=== PATIENT | male | born 1970 | race Caucasian/White ===

== ENCOUNTER 2018-11-15 13:15 | Emergency (ER) | payer MEDICAID ==
[2018-11-15] MEDS ORDERED: RINGERS SOLUTION,LACTATED 1,000 ML IV ONE ×2 (13:46→14:26)
[2018-11-15] MEDS ORDERED: DIPH/PERTUSS(ACELL)/TETANUS VAC/PF 0.5 ML SYR (>=10YO) IM ONE (13:46)
[2018-11-15 13:51] VITALS: BP 121/70
[2018-11-15 14:04] LABS: ABSOLUTE EOSINOPHILS # (AUTO) 0.1 10^3/uL (0.0-0.6); ABSOLUTE LYMPHOCYTES (AUTO) 1.4 10^3/uL (0.5-4.7); ABSOLUTE NEUT (AUTO) 6.1 10^3/uL (1.7-8.2); BASOPHILS % (AUTO) 0.3 % (0-2); EOSINOPHILS % (AUTO) 1.1 % (0-6); HEMATOCRIT 42.4 % (37.9-51.0); HEMOGLOBIN 14.3 g/dL (13.5-17.0); LYMPHOCYTES % (AUTO) 16.5 % (13-45); MEAN CORPUSCULAR HEMOGLOBIN 33.4 pg (27.0-33.4); MEAN CORPUSCULAR HGB CONC 33.6 g/dL (32.0-36.0); MEAN CORPUSCULAR VOLUME 99 fl (80-97); MONOCYTES % (AUTO) 11.2 % (3-13); PLATELET COUNT 232 10^3/uL (150-450); RED BLOOD COUNT 4.27 10^6/uL (4.35-5.55); RED CELL DISTRIBUTION WIDTH 14.3 % (11.5-14.0); SEGMENTED NEUTROPHILS % (AUTO) 70.9 % (42-78); TOTAL CELLS COUNTED % (AUTO) 100 %; WHITE BLOOD COUNT 8.6 10^3/uL (4.0-10.5)
[2018-11-15 14:09] LABS: ALANINE AMINOTRANSFERASE 63 U/L (21-72); ALKALINE PHOSPHATASE 68 U/L (38-126); ASPARTATE AMINO TRANSFERASE 81 U/L (17-59); BILIRUBIN,DIRECT 0.3 mg/dL (0.0-0.4); BILIRUBIN,TOTAL 0.6 mg/dL (0.2-1.3); BLOOD UREA NITROGEN 6 mg/dL (7-20); CALCIUM 8.9 mg/dL (8.4-10.2); CREATINE KINASE 1455 U/L (55-170); GLUCOSE 90 mg/dL (75-110); POTASSIUM 4.3 mmol/L (3.6-5.0); TOTAL PROTEIN 7.6 g/dL (6.3-8.2)
[2018-11-15 14:14] LABS: ANION GAP 19 (5-19); CARBON DIOXIDE 20 mmol/L (22-30); CHLORIDE 104 mmol/L (98-107); SODIUM 142.6 mmol/L (137-145)
--- NOTE | 2018-11-15 14:51 | RADIOLOGY REPORT (SQ) ---
EXAM DESCRIPTION: CT HEAD WITHOUT COMPLETED DATE/TIME: 11/15/2018 2:40 pm REASON FOR STUDY: etoh, ? trauma COMPARISON: None. TECHNIQUE: Axial images acquired through the brain without intravenous contrast. Images reviewed wi th bone, brain and subdural windows. Additional sagittal and coronal reconstructions were generated. Images stored on PACS. All CT scanners at this facility use dose modulation, iterative reconstruction, and/or weight based d osing when appropriate to reduce radiation dose to as low as reasonably achievable (ALARA). [facility]: Dose Right [facility]: CareDose [facility]: Dose Right [facility]: Teradose 4D [facility]: Smart [employer] RADIATION DOSE: CT Rad equipment meets quality standard of care and radiation dose reduction techniq ues were employed. CTDIvol: 53.2 mGy. DLP: 1124 mGy-cm. mGy. LIMITATIONS: Motion artifact. FINDINGS: VENTRICLES: Normal size and contour. CEREBRUM: No masses. No hemorrhage. No midline shift. No evidence for acute infarction. Normal gra y/white matter differentiation. No areas of low density in the white matter. CEREBELLUM: No masses. No hemorrhage. No alteration of density. No evidence for acute infarction. EXTRAAXIAL SPACES: No fluid collections. No masses. ORBITS AND GLOBE: No intra- or extraconal masses. Normal contour of globe without masses. CALVARIUM: No fracture. PARANASAL SINUSES: No fluid or mucosal thickening. SOFT TISSUES: No mass or hematoma. OTHER: No other significant finding. IMPRESSION: Examination is slightly limited by motion artifact. Within this limitation, no acute in tracranial pathology. EVIDENCE OF ACUTE STROKE: NO. COMMENT: Quality ID # [id number]: Final reports with documentation of one or more dose reduction techniques (e.g., Automated exposure control, adjustment of the mA and/or kV according to patient size, use of iterative reconstruction technique) TECHNICAL DOCUMENTATION: JOB ID: [id number] [employer]- All Rights Reserved Reading location - IP/workstation name: [email or web address]
--- NOTE | 2018-11-15 14:52 | RADIOLOGY REPORT (SQ) ---
EXAM DESCRIPTION: CT CERVICAL SPINE WITHOUT COMPLETED DATE/TIME: 11/15/2018 2:40 pm REASON FOR STUDY: etoh, ? trauma COMPARISON: None. TECHNIQUE: Axial images acquired through the cervical spine without intravenous contrast. Images re viewed with lung, soft tissue and bone windows. Reconstructed coronal and sagittal MPR images review ed. Images stored on PACS. All CT scanners at this facility use dose modulation, iterative reconstruction, and/or weight based d osing when appropriate to reduce radiation dose to as low as reasonably achievable (ALARA). [facility]: Dose Right [facility]: CareDose [facility]: Dose Right [facility]: Teradose 4D [facility]: [employer] RADIATION DOSE: CT Rad equipment meets quality standard of care and radiation dose reduction techniq ues were employed. CTDIvol: 22.3 mGy. DLP: 905 mGy-cm. mGy. LIMITATIONS: None. FINDINGS: ALIGNMENT: Anatomic. MINERALIZATION: Normal. VERTEBRAL BODIES: No fractures or dislocation. DISCS: Moderate multilevel disc degenerative disease. FACETS, LATERAL MASSES, POSTERIOR ELEMENTS: No fractures. No dislocation. No acute findings. HARDWARE: None in the spine. VISUALIZED RIBS: No fractures. LUNG APICES AND SOFT TISSUES: No significant or acute findings. OTHER: No other significant finding. IMPRESSION: No fracture or static subluxation of the cervical spine. TECHNICAL DOCUMENTATION: JOB ID: [id number] Quality ID # [id number]: Final reports with documentation of one or more dose reduction techniques (e.g., Au tomated exposure control, adjustment of the mA and/or kV according to patient size, use of iterative reconstruction technique) 2010 [employer]- All Rights Reserved Reading location - IP/workstation name: [email or web address]
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
== END 2018-11-15 16:08 | disposition left against medical advice (07) ==
LOC: ER 13:15
DX: T79.6XXA Traumatic ischemia of muscle, initial encounter (principal); S81.012A Laceration without foreign body, left knee, initial encounter; W11.XXXA Fall on and from ladder, initial encounter; Y93.H9 Activity, other involving exterior property and land maintenance, building and construction; M21.371 Foot drop, right foot; S20.212A Contusion of left front wall of thorax, initial encounter; S40.021A Contusion of right upper arm, initial encounter; S50.02XA Contusion of left elbow, initial encounter; S50.01XA Contusion of right elbow, initial encounter; S80.01XA Contusion of right knee, initial encounter; X58.XXXA Exposure to other specified factors, initial encounter; Z53.29 Procedure and treatment not carried out because of patient's decision for other reasons
CPT/HCPCS: 99284; 96360; 96361; 90471; 36415; 82553; 82550; 85025; 80053; 70450; 72125; 90715; J7120

== ENCOUNTER 2019-12-27 06:12 | Inpatient (IN) | payer MEDICAID ==
--- NOTE | 2019-12-27 07:16 | EKG REPORT ---
SEVERITY:- ABNORMAL ECG - SINUS RHYTHM DIFFUSE NONSSPECIFIC ST CHANGES : Confirmed by: Adrian Hoang MD 27-Dec-2019 07:16:17
[2019-12-27] MEDS ORDERED: ONDANSETRON HCL INJ/PF 4 MG/2 ML SDV IV ONE (07:56)
[2019-12-27] MEDS ORDERED: MORPHINE SULFATE 10 MG/ML INJ IV ONE ×2 (07:56→10:06)
[2019-12-27] MEDS ORDERED: NORMAL SALINE 1000 ML 1,000 ML IV ONE ×2 (07:56→12:05)
--- NOTE | 2019-12-27 08:37 | RADIOLOGY REPORT (SQ) ---
EXAM DESCRIPTION: CHEST SINGLE VIEW IMAGES COMPLETED DATE/TIME: 12/27/2019 8:23 am REASON FOR STUDY: epigastric pain COMPARISON: None. EXAM PARAMETERS: NUMBER OF VIEWS: One view. TECHNIQUE: Single frontal radiographic view of the chest acquired. RADIATION DOSE: NA LIMITATIONS: None. FINDINGS: LUNGS AND PLEURA: No opacities, masses or pneumothorax. No pleural effusion. MEDIASTINUM AND HILAR STRUCTURES: No masses. Contour normal. HEART AND VASCULAR STRUCTURES: Heart normal in size. Normal vasculature. BONES: No acute findings. HARDWARE: None in the chest. OTHER: No other significant finding. IMPRESSION: NO ACUTE RADIOGRAPHIC FINDING IN THE CHEST. TECHNICAL DOCUMENTATION: JOB ID: [id number] 2010 [employer]- All Rights Reserved Reading location - IP/workstation name: [email or web address]
[2019-12-27 09:24] LABS: ABSOLUTE EOSINOPHILS # (AUTO) 0.3 10^3/uL (0.0-0.6); ABSOLUTE LYMPHOCYTES (AUTO) 1.8 10^3/uL (0.5-4.7); ABSOLUTE MONOCYTES (AUTO) 0.7 10^3/uL (0.1-1.4); BASOPHILS % (AUTO) 0.4 % (0-2); EOSINOPHILS % (AUTO) 3.2 % (0-6); HEMOGLOBIN 17.4 g/dL (13.5-17.0); LYMPHOCYTES % (AUTO) 16.3 % (13-45); MEAN CORPUSCULAR HEMOGLOBIN 35.4 pg (27.0-33.4); MEAN CORPUSCULAR HGB CONC 34.1 g/dL (32.0-36.0); MEAN CORPUSCULAR VOLUME 104 fl (80-97); MONOCYTES % (AUTO) 6.1 % (3-13); PLATELET COUNT 338 10^3/uL (150-450); RED BLOOD COUNT 4.91 10^6/uL (4.35-5.55); RED CELL DISTRIBUTION WIDTH 13.5 % (11.5-14.0); TOTAL CELLS COUNTED % (AUTO) 100 %; WHITE BLOOD COUNT 10.8 10^3/uL (4.0-10.5)
[2019-12-27 09:41] LABS: ALBUMIN 4.9 g/dL (3.5-5.0); ALKALINE PHOSPHATASE 94 U/L (38-126); ANION GAP 12 (5-19); ASPARTATE AMINO TRANSFERASE 96 U/L (17-59); BILIRUBIN,DIRECT 0.2 mg/dL (0.0-0.4); BLOOD UREA NITROGEN 12 mg/dL (7-20); CALCIUM 10.4 mg/dL (8.4-10.2); CARBON DIOXIDE 30 mmol/L (22-30); CHLORIDE 94 mmol/L (98-107); GLUCOSE 145 mg/dL (75-110); POTASSIUM 4.8 mmol/L (3.6-5.0)
[2019-12-27] MEDS ORDERED: LORAZEPAM INJ 2 MG/1 ML VIAL IV ONE (10:06)
[2019-12-27] MEDS ORDERED: PIPERACILLIN/TAZOBACTAM 3.375 GM VIAL IV ONE (12:12)
--- NOTE | 2019-12-27 12:12 | RADIOLOGY REPORT (SQ) ---
EXAM DESCRIPTION: CT ABD/PELVIS WITH IV ONLY IMAGES COMPLETED DATE/TIME: 12/27/2019 11:45 am REASON FOR STUDY: epigastric pain COMPARISON: None. TECHNIQUE: CT scan of the abdomen and pelvis performed using helical scanning technique with dynamic intravenous contrast injection. No oral contrast. Images reviewed with lung, soft tissue, and bone windows. Reconstructed coronal and sagittal MPR images reviewed. Delayed images for evaluation of the urinary system also acquired. All images stored on PACS. All CT scanners at this facility use dose modulation, iterative reconstruction, and/or weight based d osing when appropriate to reduce radiation dose to as low as reasonably achievable (ALARA). [facility]: Dose Right [facility]: CareDose [facility]: Dose Right [facility]: Teradose 4D [facility]: [employer] CONTRAST TYPE AND DOSE: contrast/concentration: Isovue 350.00 mmol/ml; Total Contrast Delivered: 86. 0 ml; Total Saline Delivered: 69.0 ml RENAL FUNCTION: Creatinine 0.9 RADIATION DOSE: CT Rad equipment meets quality standard of care and radiation dose reduction techniq ues were employed. CTDIvol: 9.5 - 13.4 mGy. DLP: 1289 mGy-cm.. LIMITATIONS: None. FINDINGS: There is free intraperitoneal air under the right hemidiaphragm and in the epigastrium and normal in the maria de jesus hepatis. There is right and left subphrenic free fluid, trace right pericolic gutter free fluid, moderate free pelvic fluid. Fluid extends into a patent right inguinal canal/right inguinal hernia. Findings are worrisome for perforated viscus, gastric antrum is thick walled, perforated ulcer may be present. Findings discussed with Dr. Banuelos in the emergency room, 12 noon 12/27/2019. LOWER CHEST: No significant findings. No nodules or infiltrates. LIVER: Normal size. No masses. No dilated ducts. SPLEEN: Normal size. No focal lesions. PANCREAS: No masses. No significant calcifications. No adjacent inflammation or peripancreatic fluid collections. Pancreatic duct not dilated. GALLBLADDER: No identified stones by CT criteria. No inflammatory changes to suggest cholecystitis. ADRENAL GLANDS: No significant masses or asymmetry. RIGHT KIDNEY AND URETER: No solid masses. No significant calcifications. No hydronephrosis or hyd roureter. LEFT KIDNEY AND URETER: No solid masses. No significant calcifications. No hydronephrosis or hydr oureter. AORTA AND VESSELS: No aneurysm. No dissection. Renal arteries, SMA, celiac without stenosis. RETROPERITONEUM: No retroperitoneal adenopathy, hemorrhage or masses. BOWEL AND PERITONEAL CAVITY: Free intraperitoneal air and fluid, right upper quadrant free air. Ques tion perforated gastric or duodenum ulcer No dilated bowel loops worrisome for obstruction. Right lower quadrant inguinal hernia with cecum/ appendix at the internal inguinal ring and fluid in the inguinal canal. APPENDIX: Normal. PELVIS: Moderate free pelvic fluid. Bladder, rectum unremarkable ABDOMINAL WALL: No masses. No hernias. BONES: No significant or acute findings. OTHER: No other significant finding. IMPRESSION: Free intraperitoneal air and fluid. Findings worrisome for perforated viscus. Called t o the emergency room as a critical result TECHNICAL DOCUMENTATION: JOB ID: [id number] Quality ID # [id number]: Final reports with documentation of one or more dose reduction techniques (e.g., Au tomated exposure control, adjustment of the mA and/or kV according to patient size, use of iterative reconstruction technique) 2010 [employer]- All Rights Reserved Reading location - IP/workstation name: [email or web address]
[2019-12-27] MEDS ORDERED: HYDROMORPHONE HCL INJ/PF 2 MG/ML AMPULE IV ONE (12:18)
--- NOTE | 2019-12-27 12:23 | ER Document Report ---
Entered by ALEXIA PEREA SCRIBE 12/27/19 0756 Acting as scribe for:KRISTAN ROBERSON IV, MD ED General - General Chief Complaint: Chest Pain Stated Complaint: CHEST PAIN Mode of Arrival: Ambulatory Information source: Patient Notes: This alcoholic 49 year old male patient presents to the emergency department today with complaints of epigastric and right upper quadrant abdominal pain. Patient reports that the pain started abruptly this morning at around 4:30 AM this morning per history. Patient admits to at least 6 beers a day, last drinking last night. Patient is writhing around the bed in apparent pain. TRAVEL OUTSIDE OF THE [place] IN LAST 30 DAYS: No - Related Data Allergies/Adverse Reactions: No Known Allergies Allergy (Unverified 10/11/11 04:51) Past Medical History - General Information source: Patient - Social History Smoking Status: Current Every Day Smoker Cigarette use (# per day): Yes Frequency of alcohol use: Heavy Drug Abuse: None Lives with: Family Family History: Reviewed & Not Pertinent Patient has homicidal ideation: No - Medical History Medical History: Negative Surgical Hx: Negative - Immunizations Hx Diphtheria, Pertussis, Tetanus Vaccination: Yes Review of Systems - Review of Systems Constitutional: No symptoms reported EENT: No symptoms reported Cardiovascular: No symptoms reported Respiratory: No symptoms reported Gastrointestinal: See HPI, Abdominal pain Genitourinary: No symptoms reported Male Genitourinary: No symptoms reported Musculoskeletal: No symptoms reported Skin: No symptoms reported Hematologic/Lymphatic: No symptoms reported Neurological/Psychological: No symptoms reported -: Yes All other systems reviewed and negative Physical Exam - Vital signs Vitals: Temp Pulse Resp BP Pulse Ox 97.8 F 103 H 18 160/96 H 95 12/27/19 06:19 12/27/19 06:19 12/27/19 06:19 12/27/19 06:19 12/27/19 06:19 - Notes Notes: Physical Exam: General: Alert, appears uncomfortable, writhing around the bed in apparent pain. Somewhat uncooperative. HEENT: Normocephalic. Atraumatic. PERRL. Extraocular movements intact. Richard pharynx clear. Neck: Supple. Non-tender. Respiratory: No respiratory distress. Clear and equal breath sounds bilaterally. Cardiovascular: Regular rate and rhythm. Abdominal: Epigastric tenderness to palpation. No distension. Normal Bowel Sounds. No pulsatile abdominal masses or aortic bruits. Back: No gross abnormalities. Extremities: Moves all four extremities. Upper extremities: Normal inspection. Normal ROM. Lower extremities: Normal inspection. No edema. Normal ROM. Neurological: Normal cognition. AAOx4. Normal speech. Psychological: Normal affect. Normal Mood. Skin: Warm. Dry. Normal color. Course - Re-evaluation Re-evalutation: 12/27/19 12:19 Results of ED MSE discussed with patient. Need for admission and surgical intervention discussed with patient. All questions were answered. - Vital Signs Vital signs: Temp Pulse Resp BP Pulse Ox 97.8 F 103 H 35 H 138/98 H 93 12/27/19 06:19 12/27/19 06:19 12/27/19 10:01 12/27/19 10:01 12/27/19 10:01 - Laboratory Result Diagrams: 12/27/19 07:50 12/27/19 07:50 Laboratory results interpreted by me: 12/27/19 12/27/19 07:50 07:50 WBC 10.8 H Hgb 17.4 H MCV 104 H MCH 35.4 H Sodium 135.5 L Chloride 94 L Glucose 145 H Calcium 10.4 H AST 96 H ALT 51 H Total Protein 9.0 H - Diagnostic Test Radiology reviewed: Reports reviewed - EKG Interpretation by Me Additional EKG results interpreted by me: 12/27/19 12:21 EKG obtained on 12/27/2019 at 0625 hrs. was interpreted by this MD. Findings normal sinus rhythm, heart rate 81, normal axis, P waves preceding QRS complexes, QRS complexes appear narrow, there are no obvious patterns of ST segment elevation or depression present to suggest acute myocardial ischemia or infarction. Impression: Normal sinus rhythm with nonspecific ST segments - Consults DR. DAVALOS Time consulted: 12:11 - RECOMMENDED IVF RESUSCITATION, IV ABX, WILL SEE IN ED Reason for consultation: 12/27/19 12:14 FREE AIR AND FREE FLUID ON CT Consulted provider: will come to ER Critical Care Note - Critical Care Note Total time excluding time spent on procedures (mins): 120 - INTRAPERITONEAL AIR AND FLUID Discharge - Discharge Clinical Impression: Free intraperitoneal air Abdominal pain Qualifiers: Abdominal location: epigastric Qualified Code(s): R10.13 - Epigastric pain Condition: Serious Disposition: ADMITTED INPATIENT Admitting Provider: Surgicalist - DR. DAVALOS Unit Admitted: Surgical Floor I personally performed the services described in the documentation, reviewed and edited the documentation which was dictated to the scribe in my presence, and it accurately records my words and actions.
[2019-12-27] MEDS ORDERED: ONDANSETRON HCL INJ/PF 4 MG/2 ML SDV ONE (12:40)
[2019-12-27] MEDS ORDERED: DEXAMETHASONE SOD PHOSPHATE INJ 4 MG/1 ML VIAL ONE (12:40)
[2019-12-27] MEDS ORDERED: SUCCINYLCHOLINE CHLORIDE INJ 200 MG/10 ML VIAL ONE (12:40)
[2019-12-27] MEDS ORDERED: ROCURONIUM BROMIDE INJ 50 MG/5 ML VIAL IV ONE (12:40)
[2019-12-27] MEDS ORDERED: PHENYLEPHRINE HCL INJ/PF 10 MG/1 ML SDV ONE (12:40)
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
[2019-12-27 13:07] LABS: APPEARANCE,URINE SLIGHTLY-CLOUDY; BILIRUBIN,URINE NEGATIVE (NEGATIVE); COLOR,URINE YELLOW; GLUCOSE, URINE 50 mg/dL (NEGATIVE); KETONES,URINE TRACE mg/dL (NEGATIVE); LEUKOCYTE ESTERASE,URINE NEGATIVE (NEGATIVE); NITRITE,URINE NEGATIVE (NEGATIVE); PROTEIN,URINE NEGATIVE (NEGATIVE)
[2019-12-27] MEDS: NORMAL SALINE 1000 ML 1,000 ML IV PRN ×4 (13:21→22:53)
[2019-12-27 13:35] LABS: URINE AMPHETAMINES SCREEN NEGATIVE; URINE BARBITURATES SCREEN NEGATIVE; URINE BENZODIAZEPINES SCREEN NEGATIVE; URINE COCAINE SCREEN NEGATIVE; URINE METHADONE SCREEN NEGATIVE; URINE PHENCYCLIDINE SCREEN NEGATIVE
[2019-12-27 13:36] LABS: URINE MARIJUANA (THC) SCREEN UNCONFIRMED POSITIVE
[2019-12-27] MEDS ORDERED: BUPIVACAINE INJ/PF LIPOSOME/PF 266 MG/20 ML SDV ONE (13:44)
[2019-12-27] MEDS ORDERED: MIDAZOLAM 2 MG/2 ML INJ ONE (13:53)
[2019-12-27] MEDS ORDERED: PROPOFOL INJ 200 MG/20 ML VIAL IV ONE (13:53)
[2019-12-27] MEDS ORDERED: FENTANYL CITRATE INJ/PF 100 MCG/2 ML AMPUL ONE ×2 (13:53→14:39)
[2019-12-27] MEDS ORDERED: HYDROMORPHONE HCL INJ/PF 2 MG/ML AMPULE ONE (13:53)
[2019-12-27] MEDS ORDERED: ONDANSETRON HCL INJ/PF 4 MG/2 ML SDV IV PRN ×2 (14:30→15:49)
[2019-12-27] MEDS ORDERED: MEPERIDINE HCL/PF INJ 25 MG/1 ML DISP.SYRIN IV PRN (14:30)
[2019-12-27] MEDS ORDERED: FENTANYL CITRATE INJ/PF 100 MCG/2 ML AMPUL IV PRN ×3 (14:30)
[2019-12-27] MEDS ORDERED: MORPHINE SULFATE 10 MG/ML INJ IV PRN (14:30)
[2019-12-27] MEDS ORDERED: DIPHENHYDRAMINE HCL 50 MG/ML VIAL IV PRN (14:30)
[2019-12-27] MEDS ORDERED: SUGAMMADEX SODIUM 200 MG/2 ML SDV IV ONE (14:39)
--- NOTE | 2019-12-27 15:48 | Operative Report ---
Operative Report DATE OF SURGERY: 12/27/19 PREOPERATIVE DIAGNOSIS: 1. Perforated viscus consistent with peptic ulcer dise ase. 2. Alcoholic. 3. Smoker POSTOPERATIVE DIAGNOSIS: Same with perforation of distal gastric antral ulcer and peritonitis OPERATION: 1. Exploratory laparotomy. 2. Intra-abdominal washout and drain placement. 3. Closure of gastric antral ulcer with Sumit patch. 4. Open gastric wall biopsy SURGEON: CRYSTAL DAVALOS ANESTHESIA: GA TISSUE REMOVED OR ALTERED: Segment of gastric wall COMPLICATIONS: None ESTIMATED BLOOD LOSS: 20 cc INTRAOPERATIVE FINDINGS: See below PROCEDURE: The patient was taken from the preop holding area to the main operating room where general anesthesia was induced. Arms were abducted, abdominal wall clipped of hair, then prepped and draped in a sterile fashion. Surgical plan and surgical timeout were conducted. Patient had previous Cuellar catheter in position, draining clear but dark urine. Patient had 2 peripheral IVs with adequate access. The abdomen was opened through a standard midline incision from the subxiphoid area to the umbilicus. We entered the peritoneal cavity bluntly, and immediately received an egress of air and cloudy fluid. Bookwalter retractor system was established. The cloudy fluid was consistent with gastric contents. We took down the falciform ligament with LigaSure device. Brief exploration of the peritoneal cavity including right and left lobes of the liver, gallbladder, transverse colon, small bowel, and right and left sides of the colon, as well as the rectosigmoid colon revealed no other pathology. We irrigated the peritoneal cavity out after suctioning out all of the contaminated fluid with approximately 2 L of saline. Bookwalter retractor system was manipulated to expose the anterior surface of the stomach. The findings were significant for an obvious perforation in the distal antrum, prepyloric area. The ulcer was approximately 1.5 centimeters in diameter. A very small the shaped open biopsy was performed with a 15 blade on the inferior aspect of the perforation and this was sent to pathology for permanent analysis in the [facility]. Bleeding was minimal. We brought the nasogastric tube fully into the stomach then advanced the free end past the perforation, through the pylorus and into the first and second portions of the duodenum. Nasogastric tube was secured at the nares by anesthesia. We now proceeded to close the hole in the anterior stomach wall with 6 interrupted 3-0 PDS sutures in a vertical orientation. The defect was closed satisfactorily without the sutures ripping through; knots were secured. We now mobilized a portion of the greater omentum off of the proximal transverse colon, it from the omentum from the greater curvature of the stomach. This portion of omentum was elevated up across the previously placed stitches and secured at its apex to the fatty tissue consistent with the distal, lesser curvature. We now used the previously placed 3-0 PDS sutures to secure the tongue of omentum into position orienting it vertically and laying nicely on top of the closed distal stomach. All knots were secured, leaving the omentum in satisfactory position. We irrigated the subdiaphragmatic spaces with another liter of saline, and placed 2 Dav drains one in the right upper quadrant one in the left upper quadrant. The right upper quadrant drain was trimmed to appropriate length, and placed adjacent to the second portion of the duodenum tucked posterior and laterally. The left drain was placed just anterior to the repair site. Drains were secured to the skin with 2-0 Prolene suture Sponge and needle counts are correct. Nasogastric tube was confirmed to be in the stomach passing through the pylorus and ending in the second portion of the duodenum possibly third. There was no mechanical bleeding. We felt the operation was complete. Midline fascia closed with 2 double-stranded #1 PDS sutures, skin approximated with ryan and intervening spaces open with Telfa arnaldo. Honeycomb dressing and abdominal binder applied. Of note 40 cc of dilute Exparel was deployed into the subcutaneous tissues on both right and left sides of the midline incision. Patient tolerated the procedure well, extubated, and taken to recovery in stable condition.
[2019-12-27] MEDS ORDERED: LORAZEPAM INJ 2 MG/1 ML VIAL IV PRN (16:42)
--- NOTE | 2019-12-27 17:01 | PDOC CONSULTATION ---
Consultation Consult Date: 12/27/19 Attending physician:: CRYSTAL HILARIO Provider Consulted: LUCERO ROSS Consult reason:: Patient has history of alcohol abuse History of Present Illness Admission Date/PCP: 12/27/19 12:32 History of Present Illness: JIMMY RIVER is a 49 year old male With history of alcohol abuse, smoker came to the emergency room with complaints of epigastric and right upper quadrant pain CT scan indicates free air in the abdomen most likely secondary to perforated gastric ulcer, surgical consult was requested Dr. Hilario took him to the OR did an exploratory laparotomy with intra-abdominal washout and drain placement closure of the gastric antral ulcer with a Sumit patch and open the gastric wall biopsy was done. Medical consult was filed because patient has history of hypertension alcohol abuse. At the time of my examination patient alert awake communicating well. has an NG tube and the 2 abdominal drains present. Past Medical History Cardiac Medical History: Reports: Hypertension Neurological Medical History: Reports: None Endocrine Medical History: Reports: None Renal/ Medical History: Reports: None GI Medical History: Reports: None Psychiatric Medical History: Reports: Alcohol Dependency Hematology: Reports: None Infectious Medical History: Reports: None Past Surgical History Past Surgical History: Reports: None Social History Lives with: Family Smoking Status: Current Every Day Smoker Frequency of Alcohol Use: Heavy - Advance Directive Resuscitation Status: Full Code Family History Family History: None, Reviewed & Not Pertinent Parental Family History Reviewed: Yes - Hypertension Children Family History Reviewed: Yes Sibling(s) Family History Reviewed.: Yes Medication/Allergy Home Medications: Tamsulosin HCl [Flomax 0.4 mg Cap.sr] 0.4 mg PO DAILY #30 cap.sr.24h 07/26/11 Allergies/Adverse Reactions: No Known Allergies Allergy (Unverified 10/11/11 04:51) Review of Systems Constitutional: ABSENT: fever(s), headache(s), night sweats, weakness Eyes: ABSENT: visual disturbances Ears: ABSENT: hearing changes Nose, Mouth, and Throat: ABSENT: sore throat Cardiovascular: ABSENT: edema, orthropnea, palpitations Respiratory: ABSENT: cough, dyspnea, hemoptysis Gastrointestinal: PRESENT: as per HPI, abdominal pain, other - Epigastric , right upper quadrant abdominal pain Neurological: ABSENT: abnormal gait, abnormal speech, confusion, dizziness, focal weakness, syncope Psychiatric: ABSENT: anxiety, depression, homidical ideation, suicidal ideation Physical Exam Vital Signs: Temp Pulse Resp BP Pulse Ox 97.9 F 94 16 139/81 H 98 12/27/19 15:43 12/27/19 16:28 12/27/19 16:28 12/27/19 16:28 12/27/19 16:28 Intake & Output 12/26/19 12/27/19 12/28/19 06:59 06:59 06:59 Intake Total 4983 Output Total 280 Balance 4703 Weight 74.843 kg General appearance: PRESENT: no acute distress, cooperative, well-developed Head exam: PRESENT: atraumatic Eye exam: PRESENT: PERRLA Ear exam: PRESENT: normal external ear exam Mouth exam: PRESENT: dry mucosa Teeth exam: PRESENT: poor dentation Respiratory exam: PRESENT: decreased breath sounds Cardiovascular exam: PRESENT: RRR. ABSENT: diastolic murmur, rubs, systolic murmur GI/Abdominal exam: PRESENT: other - Abdominal binder is present with her 2 drains. Rectal exam: PRESENT: deferred Gentrourinary exam: PRESENT: indwelling catheter Neurological exam: PRESENT: alert, awake, oriented to person, oriented to place, oriented to time, oriented to situation, CN II-XII grossly intact. ABSENT: motor sensory deficit Psychiatric exam: PRESENT: appropriate affect, normal mood. ABSENT: homicidal ideation, suicidal ideation Results Laboratory Results: 12/27/19 07:50 12/27/19 07:50 12/27/19 12/27/19 12/27/19 07:50 07:50 12:53 WBC 10.8 H RBC 4.91 Hgb 17.4 H Hct 51.0 MCV 104 H MCH 35.4 H MCHC 34.1 RDW 13.5 Plt Count 338 Seg Neutrophils % 74.0 Sodium 135.5 L Potassium 4.8 Chloride 94 L Carbon Dioxide 30 Anion Gap 12 BUN 12 Creatinine 0.93 Est GFR ( Amer) > 60 Glucose 145 H Calcium 10.4 H Total Bilirubin 1.0 AST 96 H Alkaline Phosphatase 94 Total Protein 9.0 H Albumin 4.9 Lipase 246.3 Urine Color YELLOW Urine Appearance SLIGHTLY-CLOUDY Urine pH 5.0 Ur Specific [place] 1.030 Urine Protein NEGATIVE Urine Glucose (UA) 50 H Urine Ketones TRACE H Urine Blood MODERATE H Urine Nitrite NEGATIVE Ur Leukocyte Esterase NEGATIVE Urine WBC (Auto) 3 Urine RBC (Auto) 1 12/27/19 07:05 Troponin I < 0.012 Impressions: Abdomen/Pelvis CT 12/27/19 00:00 IMPRESSION: Free intraperitoneal air and fluid. Findings worrisome for perforated viscus. Called to the emergency room as a critical result Chest X-Ray 12/27/19 07:58 IMPRESSION: NO ACUTE RADIOGRAPHIC FINDING IN THE CHEST. Assessment and Plan - Diagnosis (1) Perforated viscus Is this a current diagnosis for this admission?: Yes Plan: 12/27/2019 patient was taken to the OR for perforated gastric ulcer status post exploratory laparotomy with placement of 2 intra-abdominal drains, closure of the gastric antral ulcer with Sumit patch, open gastric wall biopsy. Patient is on antibiotics at this time blood cultures are pending. (2) Alcoholic Is this a current diagnosis for this admission?: Yes Plan: 12/27/2019-patient has history of heavy alcohol use. Drinks sixpack of beer every day. Started on Ativan 1 mg every 4 hours as needed to prevent DTs. Started on banana bag. To watch for the DTs. (3) Tobacco abuse Is this a current diagnosis for this admission?: No Plan: 12/27/2019-patient has history of currently day smoking smokes 1 pack/day. Smoking counseling was provided. Patient was given nicotine patches. (4) HTN (hypertension) Is this a current diagnosis for this admission?: No Plan: 12/27/2019-patient has history of chronic essential hypertension latest blood pressure is 149/110. Started on IV hydralazine 10 mg every 6 hours as needed for systolic blood pressure more than 110.
[2019-12-27] MEDS: ACETAMINOPHEN INJ/PF 1000 MG/100 ML SDV IV SCH (19:27)
[2019-12-27] MEDS: NORMAL SALINE 1000 ML 1,000 ML with POTASSIUM CHLORIDE 20 MEQ, MAGNESIUM SULFATE 8 MEQ,... IV SCH ×5 (19:27)
[2019-12-27] MEDS: AMPICILLIN SODIUM/SULBACTAM NA 3 GM in NORMAL SALINE 100 ML IV SCH (22:53)
[2019-12-27] MEDS: FAMOTIDINE INJ/PF 20 MG/2 ML SDV IV SCH (22:53)
[2019-12-28] MEDS: ACETAMINOPHEN INJ/PF 1000 MG/100 ML SDV IV SCH ×3 (00:04→12:09)
[2019-12-28] MEDS: AMPICILLIN SODIUM/SULBACTAM NA 3 GM in NORMAL SALINE 100 ML IV SCH ×3 (05:27→21:41)
[2019-12-28] MEDS: NORMAL SALINE 1000 ML 1,000 ML IV PRN ×4 (05:28→21:46)
[2019-12-28] MEDS: HYDROMORPHONE HCL INJ/PF 2 MG/ML AMPULE IV PRN ×2 (09:06→21:41)
[2019-12-28] MEDS: NICOTINE 14 MG/24 HR PATCH.TD24 TD SCH (09:09)
[2019-12-28] MEDS: FAMOTIDINE INJ/PF 20 MG/2 ML SDV IV SCH ×2 (09:09→21:42)
--- NOTE | 2019-12-28 12:46 | PDOC PROGRESS REPORT ---
Subjective Progress Note for:: 12/28/19 Reason For Visit: FREE INTRAPENTONEAL AIR Physical Exam Vital Signs: Temp Pulse Resp BP Pulse Ox 98.9 F 84 18 145/98 H 99 12/28/19 08:14 12/28/19 08:14 12/28/19 08:14 12/28/19 08:14 12/28/19 08:14 Intake & Output 12/27/19 12/28/19 12/29/19 06:59 06:59 06:59 Intake Total 8283 2123 Output Total 1680 Balance 6603 2123 Weight 74.843 kg 75.5 kg General appearance: PRESENT: no acute distress Head exam: PRESENT: normocephalic Eye exam: PRESENT: EOMI Ear exam: PRESENT: normal external ear exam Mouth exam: PRESENT: moist Neck exam: PRESENT: full ROM Respiratory exam: PRESENT: clear to auscultation lili Cardiovascular exam: PRESENT: RRR Pulses: PRESENT: normal radial pulses, normal femoral pulses Vascular exam: PRESENT: normal capillary refill Breast: PRESENT: Normal GI/Abdominal exam: PRESENT: other - abd distended, min tenderness diane's serous wound dry Rectal exam: PRESENT: deferred Gentrourinary exam: PRESENT: indwelling catheter Extremities exam: PRESENT: full ROM Musculoskeletal exam: PRESENT: full ROM Neurological exam: PRESENT: alert, awake, oriented to person, oriented to place Skin exam: PRESENT: dry Results Laboratory Results: 12/27/19 07:50 12/27/19 07:50 12/27/19 12:53 Urine Color YELLOW Urine Appearance SLIGHTLY-CLOUDY Urine pH 5.0 Ur Specific [place] 1.030 Urine Protein NEGATIVE Urine Glucose (UA) 50 H Urine Ketones TRACE H Urine Blood MODERATE H Urine Nitrite NEGATIVE Ur Leukocyte Esterase NEGATIVE Urine WBC (Auto) 3 Urine RBC (Auto) 1 12/27/19 07:05 Troponin I < 0.012 Impressions: Abdomen/Pelvis CT 12/27/19 00:00 IMPRESSION: Free intraperitoneal air and fluid. Findings worrisome for perforated viscus. Called to the emergency room as a critical result Chest X-Ray 12/27/19 07:58 IMPRESSION: NO ACUTE RADIOGRAPHIC FINDING IN THE CHEST. Assessment & Plan - Plan Summary Plan Summary: s/p exploratory laparotomy for perfed gastric ulcer doing ok pod 1 has not been out of bed plan physical therapy up ambulating cont iv fluids cont iv abx.
--- NOTE | 2019-12-28 17:05 | PDOC PROGRESS REPORT ---
Subjective Progress Note for:: 12/28/19 Subjective:: The patient is resting in bed. He has a nasogastric tube in place with bilious drainage. He has a midline incision with 2 [place] drains. His only complaint is that he is hungry. Reason For Visit: FREE INTRAPENTONEAL AIR Physical Exam Vital Signs: Temp Pulse Resp BP Pulse Ox 98.1 F 80 18 146/98 H 96 12/28/19 11:32 12/28/19 11:32 12/28/19 11:32 12/28/19 11:32 12/28/19 11:32 Intake & Output 12/27/19 12/28/19 12/29/19 06:59 06:59 06:59 Intake Total 8283 3223 Output Total 1680 Balance 6603 3223 Weight 74.843 kg 75.5 kg General appearance: PRESENT: mild distress, well-developed Head exam: PRESENT: atraumatic, normocephalic Ear exam: PRESENT: normal external ear exam. ABSENT: bleeding, drainage Mouth exam: PRESENT: moist, tongue midline, other - NG tube in place Respiratory exam: PRESENT: unlabored, wheezes - Occasional expiratory wheeze. ABSENT: rales, rhonchi, tachypnea Cardiovascular exam: PRESENT: RRR, +S1, +S2. ABSENT: irregular rhythm GI/Abdominal exam: PRESENT: soft, other - Midline incision noted. 2 ZORAN drains.. ABSENT: distended Rectal exam: PRESENT: deferred Extremities exam: ABSENT: pedal edema Musculoskeletal exam: PRESENT: ambulatory, normal inspection Neurological exam: PRESENT: alert, awake, oriented to person, oriented to place, oriented to time, oriented to situation, CN II-XII grossly intact. ABSENT: alte red Psychiatric exam: PRESENT: anxious. ABSENT: agitated Focused psych exam: ABSENT: delusional, paranoid, restlessness Skin exam: PRESENT: dry, warm. ABSENT: rash Results Laboratory Results: 12/27/19 07:50 12/27/19 07:50 12/27/19 07:05 Troponin I < 0.012 Impressions: Abdomen/Pelvis CT 12/27/19 00:00 IMPRESSION: Free intraperitoneal air and fluid. Findings worrisome for perforated viscus. Called to the emergency room as a critical result Chest X-Ray 12/27/19 07:58 IMPRESSION: NO ACUTE RADIOGRAPHIC FINDING IN THE CHEST. Assessment and Plan - Diagnosis (1) Perforated viscus Is this a current diagnosis for this admission?: Yes Plan: 12/27/2019 patient was taken to the OR for perforated gastric ulcer status post exploratory laparotomy with placement of 2 intra-abdominal drains, closure of the gastric antral ulcer with Sumit patch, open gastric wall biopsy. Patient is on antibiotics at this time blood cultures are pending. 12/28/2019 Perforated gastric ulcer with Sumit patch as noted above. The patient still has significant nasogastric tube drainage. Serosanguineous drainage in both ZORAN drains. (2) Pneumoperitoneum Is this a current diagnosis for this admission?: Yes Plan: 12/28/2019 Noted on initial imaging studies. Secondary to perforated gastric ulcer. (3) Alcoholic Is this a current diagnosis for this admission?: Yes Plan: 12/27/2019-patient has history of heavy alcohol use. Drinks sixpack of beer every day. Started on Ativan 1 mg every 4 hours as needed to prevent DTs. Started on banana bag. To watch for the DTs. 12/28/2019 The patient reports 6 beers daily. It may likely be more than this. Benzodiazepine therapy is available. He is also getting narcotic analgesia for his surgery. (4) Cigarette nicotine dependence Qualifiers: Substance use status: uncomplicated Qualified Code(s): F17.210 - Nicotine dependence, cigarettes, uncomplicated Is this a current diagnosis for this admission?: Yes Plan: 12/28/2019 Continue nicotine patch (5) HTN (hypertension) Qualifiers: Hypertension type: essential hypertension Qualified Code(s): I10 - Essential (primary) hypertension Is this a current diagnosis for this admission?: Yes Plan: 12/27/2019-patient has history of chronic essential hypertension latest blood pressure is 149/110. Started on IV hydralazine 10 mg every 6 hours as needed for systolic blood pressure more than 110. 12/28/2019 Blood pressure still not well controlled. There is difficult with patient being n.p.o. - Time Time Spent with patient: 15-24 minutes Medications reviewed and adjusted accordingly: Yes Anticipated discharge: Home with Homehealth
[2019-12-28] MEDS: NORMAL SALINE 1000 ML 1,000 ML with POTASSIUM CHLORIDE 20 MEQ, MAGNESIUM SULFATE 8 MEQ,... IV SCH ×5 (18:13)
[2019-12-28] MEDS: ACETAMINOPHEN 1,000 MG/100 ML RTUPB IV SCH ×2 (18:16→23:19)
[2019-12-29] MEDS: HYDRALAZINE HCL INJ/PF 20 MG/1 ML SDV IV PRN ×4 (00:18→16:50)
[2019-12-29] MEDS: NORMAL SALINE 1000 ML 1,000 ML IV PRN (04:30)
[2019-12-29] MEDS: ACETAMINOPHEN 1,000 MG/100 ML RTUPB IV SCH ×4 (05:54→23:19)
[2019-12-29] MEDS: AMPICILLIN SODIUM/SULBACTAM NA 3 GM in NORMAL SALINE 100 ML IV SCH ×3 (05:54→21:51)
[2019-12-29] MEDS: HYDROMORPHONE HCL INJ/PF 2 MG/ML AMPULE IV PRN ×2 (09:13→17:38)
[2019-12-29] MEDS: NICOTINE 14 MG/24 HR PATCH.TD24 TD SCH (09:32)
[2019-12-29] MEDS: FAMOTIDINE INJ/PF 20 MG/2 ML SDV IV SCH (09:32)
--- NOTE | 2019-12-29 10:18 | PDOC PROGRESS REPORT ---
Subjective Progress Note for:: 12/29/19 Subjective:: Feels better after he pulled out his NG tube. Reason For Visit: FREE INTRAPENTONEAL AIR Physical Exam Vital Signs: Temp Pulse Resp BP Pulse Ox 97.7 F 98 24 H 150/86 H 100 12/29/19 08:01 12/29/19 08:01 12/29/19 08:01 12/29/19 08:01 12/29/19 08:01 Intake & Output 12/28/19 12/29/19 12/30/19 06:59 06:59 06:59 Intake Total 8283 5523 200 Output Total 1680 1515 Balance 6603 4008 200 Weight 75.5 kg 75.5 kg General appearance: PRESENT: no acute distress, cooperative Respiratory exam: PRESENT: rhonchi Cardiovascular exam: PRESENT: RRR GI/Abdominal exam: PRESENT: other - Soft, mildly distended, mild diffuse abdominal tenderness without peritoneal signs. Drain output is serosanguineous. Extremities exam: PRESENT: other - No swelling and no tenderness. Results Laboratory Results: 12/27/19 07:50 12/27/19 07:50 12/27/19 07:05 Troponin I < 0.012 Impressions: Abdomen/Pelvis CT 12/27/19 00:00 IMPRESSION: Free intraperitoneal air and fluid. Findings worrisome for perforated viscus. Called to the emergency room as a critical result Chest X-Ray 12/27/19 07:58 IMPRESSION: NO ACUTE RADIOGRAPHIC FINDING IN THE CHEST. Assessment & Plan - Diagnosis (1) Perforated gastric ulcer Qualifiers: Gastric ulcer chronicity: acute Qualified Code(s): K25.1 - Acute gastric ulcer with perforation Is this a current diagnosis for this admission?: Yes Plan: Status post Sumit patch. Patient removed critical NG. NG tube was replaced by me with absolutely no resistance with good placement confirmed by x-ray afterwards. I have emphasized the importance of this NG tube to the patient and will keep it to low wall intermittent suction. Encourage pulmonary toilet and ambulation.
[2019-12-29] MEDS ORDERED: NORMAL SALINE 1000 ML 1,000 ML IV PRN (10:20)
--- NOTE | 2019-12-29 10:57 | RADIOLOGY REPORT (SQ) ---
EXAM DESCRIPTION: KUB/ABDOMEN (SINGLE VIEW) IMAGES COMPLETED DATE/TIME: 12/29/2019 10:17 am REASON FOR STUDY: NG TUBE PLACEMENT COMPARISON: None. NUMBER OF VIEWS: One view. TECHNIQUE: Supine radiographic image of the abdomen acquired. LIMITATIONS: None. FINDINGS: BOWEL GAS PATTERN: Limited visualization. Gas is seen within multiple loops of nondistend ed bowel. CALCIFICATIONS: No suspicious calcifications. SOFT TISSUES: No gross abnormalities. No pneumoperitoneum. HARDWARE: Midline skin ryan. Apparent enteric tube terminates subdiaphragmatically within the lef t upper quadrant ; the proximal port appears to be in the region of the gastroesophageal junction. A pparent abdominal drains terminate in the right upper quadrant. BONES: No acute fracture. No worrisome bone lesions. OTHER: No other significant finding. IMPRESSION: Limited field of view without evidence of pneumoperitoneum or high-grade bowel obstructi on. Enteric tube with the proximal port terminating in the region of the gastroesophageal junction. Consider advancing 7 to 10 cm. Apparent abdominal drains terminate in the right upper quadrant. No pneumoperitoneum. TECHNICAL DOCUMENTATION: JOB ID: [id number] 2010 [employer]- All Rights Reserved Reading location - IP/workstation name: [email or web address]
[2019-12-29] MEDS: PANTOPRAZOLE SODIUM 40 MG VIAL IV SCH ×2 (11:00→21:50)
[2019-12-29] MEDS: NORMAL SALINE 1000 ML 1,000 ML with POTASSIUM CHLORIDE 20 MEQ, MAGNESIUM SULFATE 8 MEQ,... IV SCH ×5 (17:38)
--- NOTE | 2019-12-29 18:02 | PDOC PROGRESS REPORT ---
Subjective Progress Note for:: 12/29/19 Subjective:: Patient evidently pulled out his nasogastric tube earlier. A new one was placed by Dr. Navarro. Still with drainage but much thinner than yesterday. Reason For Visit: FREE INTRAPENTONEAL AIR Physical Exam Vital Signs: Temp Pulse Resp BP Pulse Ox 98.6 F 83 16 181/100 H 99 12/29/19 16:30 12/29/19 16:30 12/29/19 16:30 12/29/19 16:30 12/29/19 16:30 Intake & Output 12/28/19 12/29/19 12/30/19 06:59 06:59 06:59 Intake Total 8283 5523 1423 Output Total 1680 1515 Balance 6603 4008 1423 Weight 75.5 kg 75.5 kg General appearance: PRESENT: cooperative, mild distress Head exam: PRESENT: atraumatic, normocephalic Ear exam: PRESENT: normal external ear exam. ABSENT: bleeding, drainage Mouth exam: PRESENT: moist, tongue midline Respiratory exam: PRESENT: symmetrical, unlabored, wheezes - Occasional expiratory wheeze. ABSENT: rales, rhonchi, tachypnea Cardiovascular exam: PRESENT: RRR, +S1, +S2 GI/Abdominal exam: PRESENT: diminished bowel sounds, soft, tenderness, other - Midline incision with 2 ZORAN drains. ABSENT: distended, guarding Rectal exam: PRESENT: deferred Extremities exam: ABSENT: pedal edema Musculoskeletal exam: PRESENT: ambulatory, normal inspection Neurological exam: PRESENT: alert, awake, oriented to person, oriented to place, oriented to situation, CN II-XII grossly intact, other - Appears slightly tremulous today. ABSENT: altered Psychiatric exam: PRESENT: anxious, flat affect. ABSENT: agitated Focused psych exam: ABSENT: delusional, paranoid, restlessness Skin exam: PRESENT: dry, normal color, warm Results Laboratory Results: 12/27/19 07:50 12/27/19 07:50 12/27/19 07:05 Troponin I < 0.012 Impressions: Abdomen/Pelvis CT 12/27/19 00:00 IMPRESSION: Free intraperitoneal air and fluid. Findings worrisome for perforated viscus. Called to the emergency room as a critical result Chest X-Ray 12/27/19 07:58 IMPRESSION: NO ACUTE RADIOGRAPHIC FINDING IN THE CHEST. KUB X-Ray 12/29/19 00:00 IMPRESSION: Limited field of view without evidence of pneumoperitoneum or high- grade bowel obstruction. Enteric tube with the proximal port terminating in the region of the gastroesophageal junction. Consider advancing 7 to 10 cm. Apparent abdominal drains terminate in the right upper quadrant. No pneumoperitoneum. Assessment and Plan - Diagnosis (1) Perforated viscus Is this a current diagnosis for this admission?: Yes Plan: 12/27/2019 patient was taken to the OR for perforated gastric ulcer status post exploratory laparotomy with placement of 2 intra-abdominal drains, closure of the gastric antral ulcer with Sumit patch, open gastric wall biopsy. Patient is on antibiotics at this time blood cultures are pending. 12/28/2019 Perforated gastric ulcer with Sumit patch as noted above. The patient still has significant nasogastric tube drainage. Serosanguineous drainage in both ZORAN drains. 12/29/2019 Reports that he is feeling a little better. He has been walking in the halls. There is less nasogastric tube drainage. He continues to ask me and he will go home and I continue to tell him that he needs to ask surgery. (2) Pneumoperitoneum Is this a current diagnosis for this admission?: Yes Plan: 12/28/2019 Noted on initial imaging studies. Secondary to perforated gastric ulcer. 12/29/2019 Resolved (3) Alcoholic Is this a current diagnosis for this admission?: Yes Plan: 12/27/2019-patient has history of heavy alcohol use. Drinks sixpack of beer every day. Started on Ativan 1 mg every 4 hours as needed to prevent DTs. Started on banana bag. To watch for the DTs. 12/28/2019 The patient reports 6 beers daily. It may likely be more than this. Benzodiaz epine therapy is available. He is also getting narcotic analgesia for his surgery. 12/29/2019 He does seem a little jittery. I will start scheduled benzodiazepine therapy as well as the as needed doses (4) Cigarette nicotine dependence Qualifiers: Substance use status: uncomplicated Qualified Code(s): F17.210 - Nicotine dependence, cigarettes, uncomplicated Is this a current diagnosis for this admission?: Yes Plan: 12/28/2019 Continue nicotine patch 12/29/2019 As above (5) HTN (hypertension) Qualifiers: Hypertension type: essential hypertension Qualified Code(s): I10 - Essential (primary) hypertension Is this a current diagnosis for this admission?: Yes Plan: 12/27/2019-patient has history of chronic essential hypertension latest blood pres sure is 149/110. Started on IV hydralazine 10 mg every 6 hours as needed for systolic blood pressure more than 110. 12/28/2019 Blood pressure still not well controlled. There is difficult with patient being n.p.o. 12/29/2019 With PRN hydralazine the patient still experiences large swings in blood pres sure. I am going to start scheduled IV enalapril with as needed medications available for systolic pressures greater than 160 - Time Time Spent with patient: 15-24 minutes Medications reviewed and adjusted accordingly: Yes Anticipated discharge: Home with Homehealth
[2019-12-29] MEDS ORDERED: FUROSEMIDE INJ/PF 40 MG/4 ML SDV IV ONE (19:00)
[2019-12-29] MEDS: ENALAPRILAT DIHYDRATE INJ/PF 2.5 MG/2 ML SDV IV SCH ×2 (20:12→23:31)
[2019-12-29] MEDS: DIAZEPAM INJ 10 MG/2 ML DISP.SYRIN IV SCH (21:50)
[2019-12-29] MEDS ORDERED: DIAZEPAM INJ 10 MG/2 ML DISP.SYRIN IV SCH (22:00)
[2019-12-30] MEDS: HYDRALAZINE HCL INJ/PF 20 MG/1 ML SDV IV PRN ×3 (00:49→21:48)
--- NOTE | 2019-12-30 04:14 | PDOC PROGRESS REPORT ---
Subjective Progress Note for:: 12/30/19 Subjective:: NG pulled out again. Reason For Visit: FREE INTRAPENTONEAL AIR Physical Exam Vital Signs: Temp Pulse Resp BP Pulse Ox 98.1 F 81 20 169/101 H 96 12/30/19 00:31 12/30/19 00:31 12/30/19 00:31 12/30/19 00:31 12/30/19 00:31 Intake & Output 12/28/19 12/29/19 12/30/19 06:59 06:59 06:59 Intake Total 8285 5513 1063 Output Total 1686 1515 4411 Balance 6605 4269 -2733 Weight 75.5 kg 75.5 kg General appearance: PRESENT: no acute distress, cooperative GI/Abdominal exam: PRESENT: other - Soft mildly distended. Appropriate tenderness. No peritoneal signs. Drain output is serosanguineous. Results Laboratory Results: 12/27/19 07:50 12/27/19 07:50 12/27/19 07:05 Troponin I < 0.012 Impressions: Abdomen/Pelvis CT 12/27/19 00:00 IMPRESSION: Free intraperitoneal air and fluid. Findings worrisome for perforated viscus. Called to the emergency room as a critical result KUB X-Ray 12/29/19 00:00 IMPRESSION: Limited field of view without evidence of pneumoperitoneum or high-grade bowel obstruction. Enteric tube with the proximal port terminating in the region of the gastroesophageal junction. Consider advancing 7 to 10 cm. Apparent abdominal drains terminate in the right upper quadrant. No pneumoperitoneum. Assessment & Plan - Diagnosis (1) Perforated gastric ulcer Qualifiers: Gastric ulcer chronicity: acute Qualified Code(s): K25.1 - Acute gastric ulcer with perforation Is this a current diagnosis for this admission?: Yes Plan: Displaced NG tube. First attempt led to kinking of the NG tube tip seen on x- ray. New NG tube placed which slid in very easily with good sound at the epigastric region with air injection. Repeat stat x-ray ordered. Again reemphasized to the patient the importance of the NG tube.
--- NOTE | 2019-12-30 04:38 | RADIOLOGY REPORT (SQ) ---
EXAM DESCRIPTION: XR CHEST 1 VIEW COMPLETED DATE/TME: 12/30/2019 00:00 CLINICAL HISTORY: 49 years, Male, NGT COMPARISON: 12/27/2019 chest NUMBER OF VIEWS: 1 TECHNIQUE: Portable chest LIMITATIONS: None. FINDINGS: The heart size is normal. The enteric tube is coiled near the GE junction. Adjustment recommended. Postsurgical changes upper abdomen. Lung apices not included on the exam. Lungs are clear. No discrete pneumothorax IMPRESSION: Enteric tube coiled near the GE junction. Adjustment recommended copyright 2011 [employer]- All Rights Reserved
[2019-12-30] MEDS: ACETAMINOPHEN 1,000 MG/100 ML RTUPB IV SCH ×2 (05:18→12:21)
[2019-12-30] MEDS: DIAZEPAM INJ 10 MG/2 ML DISP.SYRIN IV SCH ×3 (05:18→21:45)
[2019-12-30] MEDS: ENALAPRILAT DIHYDRATE INJ/PF 2.5 MG/2 ML SDV IV SCH ×4 (05:18→23:19)
[2019-12-30] MEDS: NORMAL SALINE 1000 ML 1,000 ML IV PRN ×3 (05:21→21:46)
[2019-12-30] MEDS: AMPICILLIN SODIUM/SULBACTAM NA 3 GM in NORMAL SALINE 100 ML IV SCH ×3 (06:00→21:45)
--- NOTE | 2019-12-30 07:15 | RADIOLOGY REPORT (SQ) ---
EXAM DESCRIPTION: XR CHEST 1 VIEW COMPLETED DATE/TME: 12/30/2019 00:00 CLINICAL HISTORY: NGT COMPARISON: 12/30/2019 FINDINGS: Single frontal view of the chest. Tubes and lines: NG tube with tip in the stomach. Cardiomediastinal silhouette: Stable Lungs: No consolidation, pneumothorax, or pleural effusion. Bones: Stable. Upper abdomen: Stable. IMPRESSION: 1. Interval advancement of NG tube with tip beyond the stomach.
--- NOTE | 2019-12-30 09:01 | RADIOLOGY REPORT (SQ) ---
EXAM DESCRIPTION: CHEST SINGLE VIEW IMAGES COMPLETED DATE/TIME: 12/30/2019 7:58 am REASON FOR STUDY: inc dyspnea, wheeze COMPARISON: AP view of the chest from 12/30/2019. EXAM PARAMETERS: NUMBER OF VIEWS: One view. TECHNIQUE: An AP view of the chest was obtained. RADIATION DOSE: NA LIMITATIONS: None. FINDINGS: LUNGS AND PLEURA: No consolidation, pleural effusion or pneumothorax. MEDIASTINUM AND HILAR STRUCTURES: Stable mediastinal and hilar contours. HEART AND VASCULAR STRUCTURES: Stable cardiac silhouette BONES: No acute findings. HARDWARE: The tip of the enteric tube projects past the gastroesophageal junction and outside the fie ld of view of the radiograph. OTHER: Surgical drains in the abdomen. IMPRESSION: The enteric tube has been advanced forward and its tip projects outside the field of vie w of the radiograph. TECHNICAL DOCUMENTATION: JOB ID: [id number] 2010 [employer]- All Rights Reserved Reading location - IP/workstation name: [email or web address]
--- NOTE | 2019-12-30 09:10 | PDOC PROGRESS REPORT ---
Subjective Progress Note for:: 12/30/19 Reason For Visit: FREE INTRAPENTONEAL AIR Patient on floor, nasogastric tube and Cuellar in place; to need replacement yesterday. Minimal output Physical Exam Vital Signs: Temp Pulse Resp BP Pulse Ox 98.1 F 83 18 162/96 H 99 12/30/19 07:20 12/30/19 07:20 12/30/19 07:20 12/30/19 07:20 12/30/19 07:20 Intake & Output 12/29/19 12/30/19 12/31/19 06:59 06:59 06:59 Intake Total 5523 2823 100 Output Total 1515 4965 Balance 4008 -2142 100 Weight 75.5 kg 75 kg General appearance: PRESENT: mild distress, other - Slightly agitated GI/Abdominal exam: PRESENT: other - Midline dressing removed; all arnaldo removed. Abdominal wall washed, and honeycomb dressing reapplied; minimal serous drainage from abdominal drains. Results Laboratory Results: 12/27/19 07:50 12/27/19 07:50 12/27/19 07:05 Troponin I < 0.012 Impressions: Abdomen/Pelvis CT 12/27/19 00:00 IMPRESSION: Free intraperitoneal air and fluid. Findings worrisome for perforated viscus. Called to the emergency room as a critical result KUB X-Ray 12/29/19 00:00 IMPRESSION: Limited field of view without evidence of pneumoperitoneum or high- grade bowel obstruction. Enteric tube with the proximal port terminating in the region of the gastroesophageal junction. Consider advancing 7 to 10 cm. Apparent abdominal drains terminate in the right upper quadrant. No pneumoperitoneum. Chest X-Ray 12/30/19 07:00 IMPRESSION: The enteric tube has been advanced forward and its tip projects outside the field of view of the radiograph. Assessment & Plan - Diagnosis (1) Perforated viscus Is this a current diagnosis for this admission?: Yes Plan: Impression: Patient is 3 days status post exploratory laparotomy, oversewing of gastric ulcer, with persisting ileus; nasogastric tube in and out,now back in; Cuellar staying in secondary to a urinary retention, history of prostatism Plan: 1. Await resolution of ileus; continue intravenous antibiotics. 2. We will check CBC, SMA-[address] abdominal binder, get out of bed and ambulate (2) Alcoholic Is this a current diagnosis for this admission?: Yes (3) Abuse of smoked substance Is this a current diagnosis for this admission?: Yes (4) Peripheral neuropathy Is this a current diagnosis for this admission?: Yes (5) Abdominal pain Qualifiers: Abdominal location: epigastric Qualified Code(s): R10.13 - Epigastric pain Is this a current diagnosis for this admission?: Yes (6) Pneumoperitoneum Is this a current diagnosis for this admission?: Yes
[2019-12-30] MEDS: PANTOPRAZOLE SODIUM 40 MG VIAL IV SCH ×2 (09:43→21:45)
[2019-12-30] MEDS: NICOTINE 14 MG/24 HR PATCH.TD24 TD SCH (09:44)
--- NOTE | 2019-12-30 14:28 | PDOC PROGRESS REPORT ---
Subjective Progress Note for:: 12/30/19 Subjective:: Still c/o of pain and muscle spasm. He seems more worried about getting pain medications at discharge than anything else. Reason For Visit: FREE INTRAPENTONEAL AIR Physical Exam Vital Signs: Temp Pulse Resp BP Pulse Ox 97.6 F 76 18 182/108 H 99 12/30/19 12:11 12/30/19 12:11 12/30/19 12:11 12/30/19 12:25 12/30/19 12:11 Intake & Output 12/29/19 12/30/19 12/31/19 06:59 06:59 06:59 Intake Total 5582 2823 783 Output Total 1516 4955 Balance 4008 -0466 783 Weight 75.5 kg 75 kg General appearance: PRESENT: cooperative, mild distress, well-developed Head exam: PRESENT: atraumatic, normocephalic Eye exam: PRESENT: conjunctiva pink, EOMI. ABSENT: scleral icterus Ear exam: PRESENT: normal external ear exam. ABSENT: bleeding, drainage Mouth exam: PRESENT: moist, tongue midline, other - Nasogastric tube in place Respiratory exam: PRESENT: clear to auscultation lili, rales, rhonchi, tachypnea, unlabored. ABSENT: symmetrical, wheezes Cardiovascular exam: PRESENT: RRR, +S1, +S2 GI/Abdominal exam: PRESENT: normal bowel sounds, soft, other - ZORAN drains x2 Rectal exam: PRESENT: deferred Extremities exam: ABSENT: pedal edema Musculoskeletal exam: PRESENT: ambulatory, normal inspection. ABSENT: deformity Neurological exam: PRESENT: alert, awake, oriented to person, oriented to place, oriented to situation, CN II-XII grossly intact. ABSENT: altered Psychiatric exam: PRESENT: appropriate affect. ABSENT: agitated, anxious Focused psych exam: ABSENT: delusional, paranoid, restlessness Skin exam: PRESENT: dry, warm. ABSENT: rash Results Laboratory Results: 12/27/19 07:50 12/27/19 07:50 12/27/19 07:05 Troponin I < 0.012 Impressions: Abdomen/Pelvis CT 12/27/19 00:00 IMPRESSION: Free intraperitoneal air and fluid. Findings worrisome for perforated viscus. Called to the emergency room as a critical result KUB X-Ray 12/29/19 00:00 IMPRESSION: Limited field of view without evidence of pneumoperitoneum or high- grade bowel obstruction. Enteric tube with the proximal port terminating in the region of the gastroesophageal junction. Consider advancing 7 to 10 cm. Apparent abdominal drains terminate in the right upper quadrant. No pne umoperitoneum. Chest X-Ray 12/30/19 07:00 IMPRESSION: The enteric tube has been advanced forward and its tip projects outside the field of view of the radiograph. Assessment and Plan - Diagnosis (1) Perforated viscus Is this a current diagnosis for this admission?: Yes Plan: Healing nicely. Dressing was changed earlier. NG tube and drains remain in lacy ce. Direct management per surgery (2) Alcoholic Is this a current diagnosis for this admission?: Yes Plan: Slightly anxious at times. Continue benzodiazepines. He is still at risk for withdrawal. (3) Cigarette nicotine dependence Qualifiers: Substance use status: uncomplicated Qualified Code(s): F17.210 - Nicotine dependence, cigarettes, uncomplicated Is this a current diagnosis for this admission?: Yes Plan: Nicotine patch (4) HTN (hypertension) Qualifiers: Hypertension type: essential hypertension Qualified Code(s): I10 - Essential (primary) hypertension Is this a current diagnosis for this admission?: Yes Plan: Blood pressure still elevated. We will continue IV enalapril and add IV Lasix. Change to oral medications once the patient is taking p.o. (5) Pneumoperitoneum Is this a current diagnosis for this admission?: Yes Plan: Secondary to gastric perforation. - Time Time Spent with patient: 15-24 minutes Medications reviewed and adjusted accordingly: Yes Anticipated discharge: Home with Homehealth
[2019-12-30] MEDS: NORMAL SALINE 1000 ML 1,000 ML with POTASSIUM CHLORIDE 20 MEQ, MAGNESIUM SULFATE 8 MEQ,... IV SCH ×5 (17:35)
[2019-12-31] MEDS: HYDRALAZINE HCL INJ/PF 20 MG/1 ML SDV IV PRN ×2 (02:31→18:09)
[2019-12-31 05:09] LABS: ABSOLUTE EOSINOPHILS # (AUTO) 0.6 10^3/uL (0.0-0.6); ABSOLUTE LYMPHOCYTES (AUTO) 1.3 10^3/uL (0.5-4.7); ABSOLUTE MONOCYTES (AUTO) 1.2 10^3/uL (0.1-1.4); ABSOLUTE NEUT (AUTO) 5.6 10^3/uL (1.7-8.2); BASOPHILS % (AUTO) 0.3 % (0-2); HEMATOCRIT 38.5 % (37.9-51.0); HEMOGLOBIN 13.2 g/dL (13.5-17.0); LYMPHOCYTES % (AUTO) 14.8 % (13-45); MEAN CORPUSCULAR HEMOGLOBIN 35.2 pg (27.0-33.4); MEAN CORPUSCULAR HGB CONC 34.1 g/dL (32.0-36.0); MEAN CORPUSCULAR VOLUME 103 fl (80-97); MONOCYTES % (AUTO) 13.8 % (3-13); PLATELET COUNT 252 10^3/uL (150-450); RED BLOOD COUNT 3.74 10^6/uL (4.35-5.55); RED CELL DISTRIBUTION WIDTH 13.5 % (11.5-14.0); SEGMENTED NEUTROPHILS % (AUTO) 64.1 % (42-78); TOTAL CELLS COUNTED % (AUTO) 100 %; WHITE BLOOD COUNT 8.7 10^3/uL (4.0-10.5)
[2019-12-31 05:26] LABS: ANION GAP 10 (5-19); BLOOD UREA NITROGEN 8 mg/dL (7-20); CALCIUM 8.3 mg/dL (8.4-10.2); CARBON DIOXIDE 21 mmol/L (22-30); CHLORIDE 105 mmol/L (98-107); GLUCOSE 89 mg/dL (75-110); POTASSIUM 3.3 mmol/L (3.6-5.0)
[2019-12-31] MEDS: DIAZEPAM INJ 10 MG/2 ML DISP.SYRIN IV SCH ×3 (05:34→21:54)
[2019-12-31] MEDS: ENALAPRILAT DIHYDRATE INJ/PF 2.5 MG/2 ML SDV IV SCH ×3 (05:34→17:41)
[2019-12-31] MEDS: AMPICILLIN SODIUM/SULBACTAM NA 3 GM in NORMAL SALINE 100 ML IV SCH ×3 (05:34→21:53)
[2019-12-31] MEDS: NORMAL SALINE 1000 ML 1,000 ML IV PRN (05:36)
[2019-12-31] MEDS ORDERED: POTASSI CL 20 MEQ/50 ML RIDER 20 MEQ/50 ML RTUPB IV ONE (08:29)
[2019-12-31] MEDS ORDERED: NORMAL SALINE 1000 ML 1,000 ML IV PRN (09:16)
--- NOTE | 2019-12-31 09:16 | PDOC PROGRESS REPORT ---
Subjective Progress Note for:: 12/31/19 Subjective:: No complaints. Having small amounts of bowel movements. Reason For Visit: FREE INTRAPENTONEAL AIR Physical Exam Vital Signs: Temp Pulse Resp BP Pulse Ox 97.9 F 96 18 167/100 H 99 12/31/19 08:00 12/31/19 08:00 12/31/19 08:00 12/31/19 08:00 12/31/19 08:00 Intake & Output 12/30/19 12/31/19 01/01/20 06:59 06:59 06:59 Intake Total 2823 4296 Output Total 4965 1830 Balance -2142 2466 Weight 75 kg General appearance: PRESENT: no acute distress, cooperative Respiratory exam: PRESENT: clear to auscultation lili Cardiovascular exam: PRESENT: RRR GI/Abdominal exam: PRESENT: soft - Soft, mildly distended, minimal tenderness. Wound is clean with separations between ryan with minimal drainage. Drain output is serosanguineous and nonbilious. Results Laboratory Results: 12/31/19 04:37 12/31/19 04:37 12/31/19 12/31/19 04:37 04:37 WBC 8.7 RBC 3.74 L Hgb 13.2 L Hct 38.5 MCV 103 H MCH 35.2 H MCHC 34.1 RDW 13.5 Plt Count 252 Seg Neutrophils % 64.1 Sodium 136.0 L Potassium 3.3 L Chloride 105 Carbon Dioxide 21 L Anion Gap 10 BUN 8 Creatinine 0.56 Est GFR ( Amer) > 60 Glucose 89 Calcium 8.3 L 12/27/19 07:05 Troponin I < 0.012 Impressions: Abdomen/Pelvis CT 12/27/19 00:00 IMPRESSION: Free intraperitoneal air and fluid. Findings worrisome for perforated viscus. Called to the emergency room as a critical result KUB X-Ray 12/29/19 00:00 IMPRESSION: Limited field of view without evidence of pneumoperitoneum or high- grade bowel obstruction. Enteric tube with the proximal port terminating in the region of the gastroesophageal junction. Consider advancing 7 to 10 cm. Apparent abdominal drains terminate in the right upper quadrant. No pneumoperitoneum. Chest X-Ray 12/30/19 07:00 IMPRESSION: The enteric tube has been advanced forward and its tip projects o utside the field of view of the radiograph. Assessment & Plan - Diagnosis (1) Perforated gastric ulcer Qualifiers: Gastric ulcer chronicity: acute Qualified Code(s): K25.1 - Acute gastric ulcer with perforation Is this a current diagnosis for this admission?: Yes Plan: Status post Sumit patch. Patient looks good. Continue NG to suction. We will plan a upper GI series in the next day or so.
[2019-12-31] MEDS: PANTOPRAZOLE SODIUM 40 MG VIAL IV SCH ×2 (10:45→21:53)
[2019-12-31] MEDS: FUROSEMIDE INJ/PF 20 MG/2 ML SDV IV SCH (10:45)
--- NOTE | 2019-12-31 11:14 | PDOC PROGRESS REPORT ---
Subjective Progress Note for:: 12/31/19 Subjective:: Patient is allowed ice chips. He continues to ambulate at times. Other than being hungry he has no complaints. Reason For Visit: FREE INTRAPENTONEAL AIR Physical Exam Vital Signs: Temp Pulse Resp BP Pulse Ox 97.9 F 96 18 167/100 H 99 12/31/19 08:00 12/31/19 08:00 12/31/19 08:00 12/31/19 08:00 12/31/19 08:00 Intake & Output 12/30/19 12/31/19 01/01/20 06:59 06:59 06:59 Intake Total 2823 4296 Output Total 4965 1830 Balance -2142 2466 Weight 75 kg General appearance: PRESENT: no acute distress, cooperative, well-developed Head exam: PRESENT: atraumatic, normocephalic Ear exam: PRESENT: normal external ear exam. ABSENT: bleeding, drainage Mouth exam: PRESENT: moist, tongue midline Respiratory exam: PRESENT: symmetrical, unlabored, wheezes - Still with sporadic expiratory wheeze. ABSENT: accessory muscle use, prolonged expiratory phas, rales, rhonchi, tachypnea Cardiovascular exam: PRESENT: RRR, +S1, +S2. ABSENT: diastolic murmur, irregular rhythm, systolic murmur GI/Abdominal exam: PRESENT: normal bowel sounds, soft, tenderness, other - ZORAN drains in place. ABSENT: distended Rectal exam: PRESENT: deferred Extremities exam: ABSENT: pedal edema Musculoskeletal exam: PRESENT: ambulatory, normal inspection. ABSENT: deformity, dislocation Neurological exam: PRESENT: alert, awake, oriented to person, oriented to place, oriented to time, oriented to situation, CN II-XII grossly intact. ABSENT: altered, motor sensory deficit Psychiatric exam: PRESENT: appropriate affect. ABSENT: agitated, anxious Focused psych exam: ABSENT: delusional, paranoid, restlessness Skin exam: PRESENT: dry, normal color, warm. ABSENT: rash Results Laboratory Results: 12/31/19 04:37 12/31/19 04:37 12/31/19 12/31/19 04:37 04:37 WBC 8.7 RBC 3.74 L Hgb 13.2 L Hct 38.5 MCV 103 H MCH 35.2 H MCHC 34.1 RDW 13.5 Plt Count 252 Seg Neutrophils % 64.1 Sodium 136.0 L Potassium 3.3 L Chloride 105 Carbon Dioxide 21 L Anion Gap 10 BUN 8 Creatinine 0.56 Est GFR ( Amer) > 60 Glucose 89 Calcium 8.3 L 12/27/19 07:05 Troponin I < 0.012 Impressions: Abdomen/Pelvis CT 12/27/19 00:00 IMPRESSION: Free intraperitoneal air and fluid. Findings worrisome for perforated viscus. Called to the emergency room as a critical result KUB X-Ray 12/29/19 00:00 IMPRESSION: Limited field of view without evidence of pneumoperitoneum or high- grade bowel obstruction. Enteric tube with the proximal port terminating in the region of the gastroesophageal junction. Consider advancing 7 to 10 cm. Apparent abdominal drains terminate in the right upper quadrant. No pneumo peritoneum. Chest X-Ray 12/30/19 07:00 IMPRESSION: The enteric tube has been advanced forward and its tip projects outside the field of view of the radiograph. Assessment and Plan - Diagnosis (1) Perforated viscus Is this a current diagnosis for this admission?: Yes Plan: Nasogastric tube remains. The patient reports that the surgeon was considering removing this possibly tomorrow. He is taking ice chips at this time. There is also mention of an upper GI series possibly tomorrow. (2) Alcoholic Is this a current diagnosis for this admission?: Yes Plan: I will decrease the scheduled diazepam to every 8 hours from every 6 hours. (3) Cigarette nicotine dependence Qualifiers: Substance use status: uncomplicated Qualified Code(s): F17.210 - Nicotine dependence, cigarettes, uncomplicated Is this a current diagnosis for this admission?: Yes Plan: Continue nicotine patch (4) HTN (hypertension) Qualifiers: Hypertension type: essential hypertension Qualified Code(s): I10 - Essentia l (primary) hypertension Is this a current diagnosis for this admission?: Yes Plan: Still not adequately controlled. I will add IV Lasix daily. If this is not successful then consider administering oral antihypertensives through the nasogastric tube and clamping the tube for several hours. He may possibly be started on clear liquids tomorrow so I will just monitor on the regimen for tonight (5) Pneumoperitoneum Is this a current diagnosis for this admission?: Yes Plan: Secondary to gastric perforation. Resolved. (6) Hypokalemia Is this a current diagnosis for this admission?: Yes Plan: Potassium was 3.3. Will administer IV potassium today. - Time Time Spent with patient: 15-24 minutes Medications reviewed and adjusted accordingly: Yes Anticipated discharge: Home
[2019-12-31] MEDS: NICOTINE 14 MG/24 HR PATCH.TD24 TD SCH (11:15)
[2019-12-31] MEDS: HYDROMORPHONE HCL INJ/PF 2 MG/ML AMPULE IV PRN ×2 (17:41→23:30)
--- NOTE | 2019-12-31 17:43 | RADIOLOGY REPORT (SQ) ---
EXAM DESCRIPTION: KUB/ABDOMEN (SINGLE VIEW) IMAGES COMPLETED DATE/TIME: 12/31/2019 5:14 pm REASON FOR STUDY: ngt insertion COMPARISON: None. NUMBER OF VIEWS: KUB 12/29/2019 TECHNIQUE: Supine radiographic image of the abdomen acquired. LIMITATIONS: None. FINDINGS: BOWEL GAS PATTERN: Normal bowel gas pattern. No dilated loops. CALCIFICATIONS: No suspicious calcifications. SOFT TISSUES: No gross mass or suggestion of organomegaly. HARDWARE: Enteric tube tip projecting over the left upper abdomen with the side port located in the r egion of the gastroesophageal junction. Unchanged positioning of 2 surgical drains projecting over t he right upper abdomen. BONES: No acute fracture. No worrisome bone lesions. OTHER: Vertical mid abdominal surgical ryan. IMPRESSION: Lines and tubes as above. Enteric tube tip projecting over the left upper abdomen with the side port located in the region of the gastroesophageal junction. Nonobstructive bowel gas pattern. TECHNICAL DOCUMENTATION: JOB ID: [id number] 2010 [employer]- All Rights Reserved Reading location - IP/workstation name: [email or web address]
[2019-12-31] MEDS ORDERED: LISINOPRIL 10 MG TABLET PO ONE (17:58)
[2019-12-31] MEDS ORDERED: METOPROLOL TARTRATE 25 MG TABLET PO ONE (17:59)
[2019-12-31] MEDS: NORMAL SALINE 1000 ML 1,000 ML with POTASSIUM CHLORIDE 20 MEQ, MAGNESIUM SULFATE 8 MEQ,... IV SCH ×5 (18:02)
[2019-12-31] MEDS: LISINOPRIL 10 MG TABLET PO SCH (21:53)
[2019-12-31] MEDS: METOPROLOL TARTRATE 50 MG TABLET PO SCH (21:53)
[2019-12-31] MEDS ORDERED: METOPROLOL TARTRATE 50 MG TABLET PO SCH (22:00)
[2019-12-31] MEDS ORDERED: LISINOPRIL 10 MG TABLET PO SCH (22:00)
[2020-01-01] MEDS: DIAZEPAM INJ 10 MG/2 ML DISP.SYRIN IV SCH ×3 (05:16→21:01)
[2020-01-01] MEDS: AMPICILLIN SODIUM/SULBACTAM NA 3 GM in NORMAL SALINE 100 ML IV SCH ×3 (05:16→21:01)
[2020-01-01] MEDS: NICOTINE 14 MG/24 HR PATCH.TD24 TD SCH (10:11)
[2020-01-01] MEDS: LISINOPRIL 10 MG TABLET PO SCH ×2 (10:12→21:01)
[2020-01-01] MEDS: PANTOPRAZOLE SODIUM 40 MG VIAL IV SCH (10:12)
[2020-01-01] MEDS: METOPROLOL TARTRATE 50 MG TABLET PO SCH ×2 (10:12→21:02)
[2020-01-01] MEDS: FUROSEMIDE INJ/PF 20 MG/2 ML SDV IV SCH (10:13)
[2020-01-01] MEDS: HYDROMORPHONE HCL INJ/PF 2 MG/ML AMPULE IV PRN ×2 (10:26→21:01)
--- NOTE | 2020-01-01 10:55 | PDOC PROGRESS REPORT ---
Subjective Progress Note for:: 01/01/20 Subjective:: No complaints. Feels well. Reason For Visit: FREE INTRAPENTONEAL AIR Physical Exam Vital Signs: Temp Pulse Resp BP Pulse Ox 98.5 F 72 17 157/102 H 99 01/01/20 08:00 01/01/20 08:00 01/01/20 08:00 01/01/20 08:00 01/01/20 08:00 Intake & Output 12/31/19 01/01/20 01/02/20 06:59 06:59 06:59 Intake Total 4296 2573 1023 Output Total 1830 2910 Balance 2466 -337 1023 Weight 79.7 kg General appearance: PRESENT: no acute distress, cooperative Respiratory exam: PRESENT: clear to auscultation lili Cardiovascular exam: PRESENT: RRR GI/Abdominal exam: PRESENT: other - Soft, minimal tenderness. Drain output is serosanguineous. Wound appears very clean separation is present between loosely placed ryan. No purulent drainage. NG output has diminished and is nonbilious. Results Laboratory Results: 12/31/19 04:37 12/31/19 04:37 12/27/19 14:23 Abdomen - Not Specified Gram Stain - Final 12/27/19 14:23 Abdomen - Not Specified Wound Culture - Final NO AEROBIC OR ANAEROBIC ORGANISMS RECOVERED 12/27/19 07:05 Troponin I < 0.012 Impressions: Abdomen/Pelvis CT 12/27/19 00:00 IMPRESSION: Free intraperitoneal air and fluid. Findings worrisome for perforated viscus. Called to the emergency room as a critical result Chest X-Ray 12/30/19 07:00 IMPRESSION: The enteric tube has been advanced forward and its tip projects outside the field of view of the radiograph. KUB X-Ray 12/31/19 00:00 IMPRESSION: Lines and tubes as above. Enteric tube tip projecting over the left upper abdomen with the side port located in the region of the gastroesophageal junction. Nonobstructive bowel gas pattern. Assessment & Plan - Diagnosis (1) Perforated gastric ulcer Qualifiers: Gastric ulcer chronicity: acute Qualified Code(s): K25.1 - Acute gastric ul cer with perforation Is this a current diagnosis for this admission?: Yes Plan: Status post Sumit patch. Patient looks good. We will see if radiology will do a upper GI series today. If not will obtain the study tomorrow.
[2020-01-01] MEDS ORDERED: NORMAL SALINE 1000 ML 1,000 ML IV PRN (10:59)
--- NOTE | 2020-01-01 12:18 | PDOC PROGRESS REPORT ---
Subjective Progress Note for:: 01/01/20 Subjective:: The patient is requesting a walker at discharge as it has been helpful during physical therapy. He was also asking about pain medications at discharge and I told him that would be up to surgery. He still has his ZORAN drains and NG tube in place. Have been administering some antihypertensive medications through the nasogastric tube to achieve better blood pressure control. Reason For Visit: FREE INTRAPENTONEAL AIR Physical Exam Vital Signs: Temp Pulse Resp BP Pulse Ox 98.5 F 72 17 157/102 H 99 01/01/20 08:00 01/01/20 08:00 01/01/20 08:00 01/01/20 08:00 01/01/20 08:00 Intake & Output 12/31/19 01/01/20 01/02/20 06:59 06:59 06:59 Intake Total 4296 2573 1023 Output Total 1830 2910 Balance 2466 -337 1023 Weight 79.7 kg General appearance: PRESENT: no acute distress, cooperative, well-developed Head exam: PRESENT: atraumatic, normocephalic Ear exam: PRESENT: normal external ear exam. ABSENT: bleeding, drainage Mouth exam: PRESENT: moist, tongue midline, other - NG tube in place Respiratory exam: PRESENT: clear to auscultation lili, symmetrical, unlabored. ABSENT: accessory muscle use, prolonged expiratory phas, rales, rhonchi, wheezes Cardiovascular exam: PRESENT: RRR, +S1, +S2 GI/Abdominal exam: PRESENT: normal bowel sounds, soft, tenderness - Midline incision, other - ZORAN drains are still in place Rectal exam: PRESENT: deferred Extremities exam: ABSENT: pedal edema Musculoskeletal exam: PRESENT: ambulatory, normal inspection. ABSENT: deformity Neurological exam: PRESENT: alert, awake, oriented to person, oriented to place, oriented to time, oriented to situation, CN II-XII grossly intact. ABSENT: altered Psychiatric exam: PRESENT: appropriate affect. ABSENT: agitated, anxious Focused psych exam: ABSENT: delusional, paranoid, restlessness Skin exam: PRESENT: dry, normal color, warm. ABSENT: rash Results Laboratory Results: 12/31/19 04:37 12/31/19 04:37 12/27/19 14:23 Abdomen - Not Specified Gram Stain - Final 12/27/19 14:23 Abdomen - Not Specified Wound Culture - Final NO AEROBIC OR ANAEROBIC ORGANISMS RECOVERED 12/27/19 07:05 Troponin I < 0.012 Impressions: Abdomen/Pelvis CT 12/27/19 00:00 IMPRESSION: Free intraperitoneal air and fluid. Findings worrisome for perforated viscus. Called to the emergency room as a critical result Chest X-Ray 12/30/19 07:00 IMPRESSION: The enteric tube has been advanced forward and its tip projects outside the field of view of the radiograph. KUB X-Ray 12/31/19 00:00 IMPRESSION: Lines and tubes as above. Enteric tube tip projecting over the left upper abdomen with the side port located in the region of the gastroesophageal junction. Nonobstructive bowel gas pattern. Assessment and Plan - Diagnosis (1) HTN (hypertension) Qualifiers: Hypertension type: essential hypertension Qualified Code(s): I10 - Esse ntial (primary) hypertension Is this a current diagnosis for this admission?: Yes Plan: IV medication was not adequate. I started lisinopril 10 mg every 12 hours, metoprolol 50 mg every 12 hours and furosemide 20 mg daily. Blood pressures are improving. (2) Hypokalemia Is this a current diagnosis for this admission?: Yes Plan: We will continue potassium supplement but anticipate regular diet will correct potassium deficit. Recheck electrolytes tomorrow. (3) Alcoholic Is this a current diagnosis for this admission?: Yes Plan: Continue current medication regimen (4) Cigarette nicotine dependence Qualifiers: Substance use status: uncomplicated Qualified Code(s): F17.210 - Nicotine dependence, cigarettes, uncomplicated Is this a current diagnosis for this admission?: Yes Plan: Nicotine patch and encourage cessation (5) Perforated viscus Is this a current diagnosis for this admission?: Yes Plan: Successfully repaired by surgery (6) Pneumoperitoneum Is this a current diagnosis for this admission?: Yes Plan: Secondary to gastric perforation. Resolved. - Time Time Spent with patient: 15-24 minutes Medications reviewed and adjusted accordingly: Yes Anticipated discharge: Home with Homehealth
[2020-01-01] MEDS: NORMAL SALINE 1000 ML 1,000 ML with POTASSIUM CHLORIDE 20 MEQ, MAGNESIUM SULFATE 8 MEQ,... IV SCH ×5 (17:54)
[2020-01-01] MEDS: HYDRALAZINE HCL INJ/PF 20 MG/1 ML SDV IV PRN (23:41)
[2020-01-02] MEDS: HYDROMORPHONE HCL INJ/PF 2 MG/ML AMPULE IV PRN (03:18)
[2020-01-02 04:50] LABS: ABSOLUTE EOSINOPHILS # (AUTO) 0.8 10^3/uL (0.0-0.6); ABSOLUTE LYMPHOCYTES (AUTO) 1.7 10^3/uL (0.5-4.7); ABSOLUTE MONOCYTES (AUTO) 1.4 10^3/uL (0.1-1.4); BASOPHILS % (AUTO) 0.4 % (0-2); EOSINOPHILS % (AUTO) 8.9 % (0-6); HEMATOCRIT 43.3 % (37.9-51.0); HEMOGLOBIN 14.8 g/dL (13.5-17.0); MEAN CORPUSCULAR HGB CONC 34.2 g/dL (32.0-36.0); MEAN CORPUSCULAR VOLUME 103 fl (80-97); MONOCYTES % (AUTO) 15.6 % (3-13); PLATELET COUNT 249 10^3/uL (150-450); RED BLOOD COUNT 4.22 10^6/uL (4.35-5.55); RED CELL DISTRIBUTION WIDTH 13.2 % (11.5-14.0); SEGMENTED NEUTROPHILS % (AUTO) 56.1 % (42-78); TOTAL CELLS COUNTED % (AUTO) 100 %
[2020-01-02 05:15] LABS: ANION GAP 10 (5-19); BLOOD UREA NITROGEN 10 mg/dL (7-20); CALCIUM 8.8 mg/dL (8.4-10.2); CARBON DIOXIDE 27 mmol/L (22-30); CHLORIDE 98 mmol/L (98-107); GLUCOSE 89 mg/dL (75-110); POTASSIUM 3.5 mmol/L (3.6-5.0)
[2020-01-02] MEDS: DIAZEPAM INJ 10 MG/2 ML DISP.SYRIN IV SCH ×2 (05:17→14:00)
[2020-01-02] MEDS: AMPICILLIN SODIUM/SULBACTAM NA 3 GM in NORMAL SALINE 100 ML IV SCH ×3 (05:17→22:06)
--- NOTE | 2020-01-02 09:45 | PDOC PROGRESS REPORT ---
Subjective Progress Note for:: 01/02/20 Reason For Visit: FREE INTRAPENTONEAL AIR Patient ambulating in halls, passing flatus. Cuellar and NG tube remain in as well as both drains. Physical Exam Vital Signs: Temp Pulse Resp BP Pulse Ox 98.3 F 72 18 161/94 H 100 01/02/20 07:51 01/02/20 07:51 01/02/20 07:51 01/02/20 07:51 01/02/20 07:51 Intake & Output 01/01/20 01/02/20 01/03/20 06:59 06:59 06:59 Intake Total 2573 1323 Output Total 2910 3310 - Weight 79.7 kg 80.1 kg General appearance: PRESENT: no acute distress GI/Abdominal exam: PRESENT: other - Abdomen is soft. Midline dressing removed. Tomasz intact and open area is reasonably clean with no obvious drainage Results Laboratory Results: 01/02/20 04:11 01/02/20 04:41 01/02/20 01/02/20 04:11 04:41 WBC 9.0 RBC 4.22 L Hgb 14.8 Hct 43.3 MCV 103 H MCH 35.0 H MCHC 34.2 RDW 13.2 Plt Count 249 Seg Neutrophils % 56.1 Sodium 134.9 L Potassium 3.5 L Chloride 98 Carbon Dioxide 27 Anion Gap 10 BUN 10 Creatinine 0.55 Est GFR ( Amer) > 60 Glucose 89 Calcium 8.8 Magnesium 1.8 12/27/19 17:55 Blood Blood Culture - Final NO GROWTH IN 5 DAYS 12/27/19 12:35 Blood Blood Culture - Final NO GROWTH IN 5 DAYS 12/27/19 07:05 Troponin I < 0.012 Impressions: Abdomen/Pelvis CT 12/27/19 00:00 IMPRESSION: Free intraperitoneal air and fluid. Findings worrisome for perforated viscus. Called to the emergency room as a critical result Chest X-Ray 12/30/19 07:00 IMPRESSION: The enteric tube has been advanced forward and its tip projects outside the field of view of the radiograph. KUB X-Ray 12/31/19 00:00 IMPRESSION: Lines and tubes as above. Enteric tube tip projecting over the left upper abdomen with the side port located in the region of the gastroesophageal junction. Nonobstructive bowel gas pattern. Assessment & Plan - Diagnosis (1) Perforated viscus Is this a current diagnosis for this admission?: Yes Plan: Impression: Postoperative day 6 status post exploratory laparotomy, closure of gastric perforation with Sumit patch, doing well overall Plan: 1. We will obtain upper GI contrast study to rule out leak, and confirm gastric emptying 2. Hopefully DC nasogastric tube 3. Anticipate stopping intravenous antibiotics in 24 hours (2) Alcoholic Is this a current diagnosis for this admission?: Yes (3) Abuse of smoked substance Is this a current diagnosis for this admission?: Yes (4) Peripheral neuropathy Is this a current diagnosis for this admission?: Yes (5) Abdominal pain Qualifiers: Abdominal location: epigastric Qualified Code(s): R10.13 - Epigastric pain Is this a current diagnosis for this admission?: Yes (6) Pneumoperitoneum Is this a current diagnosis for this admission?: Yes
[2020-01-02] MEDS: METOPROLOL TARTRATE 50 MG TABLET PO SCH ×2 (09:47→22:05)
[2020-01-02] MEDS: LISINOPRIL 10 MG TABLET PO SCH ×2 (09:47→22:05)
[2020-01-02] MEDS: FUROSEMIDE INJ/PF 20 MG/2 ML SDV IV SCH (09:47)
[2020-01-02] MEDS: NICOTINE 14 MG/24 HR PATCH.TD24 TD SCH (09:47)
--- NOTE | 2020-01-02 10:52 | RADIOLOGY REPORT (SQ) ---
EXAM DESCRIPTION: UGI W/ SINGLE CONTRAST IMAGES COMPLETED DATE/TIME: 01/02/2020 9:35 am REASON FOR STUDY: Rule out gastric leak. Status post Sumit patch COMPARISON: CT abdomen pelvis 12/27/2019. TECHNIQUE: Under fluoroscopic guidance, Omnipaque 350 was instilled through the indwelling NG tube. Go Fluoroscopic spot images stored on PACS. LIMITATIONS: None. FLUOROSCOPY TIME: 2.1 minutes of fluoroscopy was used. 13 images saved to PACS. FINDINGS: STOMACH: NG tube is in proper position. 100 mL of Omnipaque 350 was instilled showing no evidence of extravasation or leak of contrast. GASTRIC OUTLET: No delay in emptying. Normal pylorus. DUODENAL BULB: Normal distention. No spasm or ulceration. DUODENUM: Mucosa normal. No extrinsic masses or malrotation. PROXIMAL JEJUNUM: Normal mucosal pattern. No dilatation, segmentation, strictures or masses. NON-GI TRACT STRUCTURES: Surgical drains placed from the right and left show no evidence of increased density to indicate leak of contrast. Tubes are in proper position. OTHER: No other significant finding. IMPRESSION: NO EVIDENCE OF EXTRAVASATION OR LEAK. COMMENT: Quality ID [id number]: Final reports for procedures using fluoroscopy that document radiation exp osure indices, or exposure time and number of fluorographic images (if radiation exposure indices are not available) TECHNICAL DOCUMENTATION: JOB ID: [id number] 2010 [employer]- All Rights Reserved Reading location - IP/workstation name: [email or web address] [id number]
[2020-01-02] MEDS ORDERED: PHENOL/SODIUM PHENOLATE 100 SPRAY/177 ML BOTTLE PO PRN (12:22)
--- NOTE | 2020-01-02 12:29 | PDOC PROGRESS REPORT ---
Subjective Progress Note for:: 01/02/20 Subjective:: The patient is tolerating his ice chips. He went for an upper GI series earlier which showed no extravasation from the ulcer repair and normal gastric emptying. He may likely have the nasogastric tube removed today. He does report a sore throat from the NG tube. It is more likely irritated from the fact that it has come out twice and had to be replaced. Reason For Visit: FREE INTRAPENTONEAL AIR Physical Exam Vital Signs: Temp Pulse Resp BP Pulse Ox 98.3 F 72 18 161/94 H 100 01/02/20 07:51 01/02/20 07:51 01/02/20 07:51 01/02/20 07:51 01/02/20 07:51 Intake & Output 01/01/20 01/02/20 01/03/20 06:59 06:59 06:59 Intake Total 2573 1323 2022 Output Total 2910 3310 Balance -337 -1986 2022 Weight 79.7 kg 80.1 kg General appearance: PRESENT: no acute distress, cooperative, well-developed Head exam: PRESENT: atraumatic, normocephalic Ear exam: PRESENT: normal external ear exam. ABSENT: bleeding, drainage Teeth exam: PRESENT: other - Nasogastric tube in place Respiratory exam: PRESENT: clear to auscultation lili, symmetrical, unlabored. ABSENT: prolonged expiratory phas, rales, rhonchi, tachypnea, wheezes Cardiovascular exam: PRESENT: RRR, +S1, +S2. ABSENT: diastolic murmur, irregular rhythm, systolic murmur GI/Abdominal exam: PRESENT: normal bowel sounds, soft, tenderness - Midline incision is healing nicely. Still some tenderness., other - Midline incision. ZORAN drains present Rectal exam: PRESENT: deferred Gentrourinary exam: PRESENT: indwelling catheter Extremities exam: ABSENT: pedal edema Musculoskeletal exam: PRESENT: ambulatory, normal inspection. ABSENT: deformity, dislocation Neurological exam: PRESENT: alert, awake, oriented to person, oriented to place, oriented to situation, CN II-XII grossly intact. ABSENT: altered Psychiatric exam: PRESENT: appropriate affect. ABSENT: agitated, anxious Focused psych exam: ABSENT: delusional, paranoid, restlessness Skin exam: PRESENT: dry, warm. ABSENT: rash Results Laboratory Results: 01/02/20 04:11 01/02/20 04:41 01/02/20 01/02/20 04:11 04:41 WBC 9.0 RBC 4.22 L Hgb 14.8 Hct 43.3 MCV 103 H MCH 35.0 H MCHC 34.2 RDW 13.2 Plt Count 249 Seg Neutrophils % 56.1 Sodium 134.9 L Potassium 3.5 L Chloride 98 Carbon Dioxide 27 Anion Gap 10 BUN 10 Creatinine 0.55 Est GFR ( Amer) > 60 Glucose 89 Calcium 8.8 Magnesium 1.8 12/27/19 17:55 Blood Blood Culture - Final NO GROWTH IN 5 DAYS 12/27/19 12:35 Blood Blood Culture - Final NO GROWTH IN 5 DAYS 12/27/19 07:05 Troponin I < 0.012 Impressions: Abdomen/Pelvis CT 12/27/19 00:00 IMPRESSION: Free intraperitoneal air and fluid. Findings worrisome for perforated viscus. Called to the emergency room as a critical result Chest X-Ray 12/30/19 07:00 IMPRESSION: The enteric tube has been advanced forward and its tip projects outside the field of view of the radiograph. KUB X-Ray 12/31/19 00:00 IMPRESSION: Lines and tubes as above. Enteric tube tip projecting over the left upper abdomen with the side port located in the region of the gastroesophageal junction. Nonobstructive bowel gas pattern. Upper GI Series-Limited 01/02/20 00:00 IMPRESSION: NO EVIDENCE OF EXTRAVASATION OR LEAK. Assessment and Plan - Diagnosis (1) HTN (hypertension) Qualifiers: Hypertension type: essential hypertension Qualified Code(s): I10 - Essential (primary) hypertension Is this a current diagnosis for this admission?: Yes Plan: Blood pressure is slowly improving with administration of antihypertensive medications through the NG tube. Currently on lisinopril, metoprolol and furosemide. As needed medications also available. Heart rate is well controlled and so if there is an increase it would be with the lisinopril. We will still be conservative and monitor on current medications. (2) Pharyngitis Qualifiers: Pharyngitis/tonsillitis etiology: unspecified etiology Qualified Code(s): J02.9 - Acute pharyngitis, unspecified Is this a current diagnosis for this admission?: Yes Plan: The patient's throat is sore from the nasogastric tube. Unfortunate the patient removed his tube several times and so the tube is been replaced. I will order Chloraseptic spray. (3) Hypokalemia Is this a current diagnosis for this admission?: Yes Plan: Potassium was just below the lower limit normal today. The patient he is receiving potassium chloride through the NG tube. Adjust the dose and continue to monitor. I believe when the patient resumes a regular diet he will no longer need as much or possibly in a potassium chloride supplement. (4) Alcoholic Is this a current diagnosis for this admission?: Yes Plan: The patient has been stable. I will change his diazepam to scheduled oral dosing from IV. The goal will be to wean him off scheduled dosing. He is still in the window for possible withdrawal. He is getting close to the end of that window. Hopefully he will be off of scheduled benzodiazepine therapy in the next several days. (5) Cigarette nicotine dependence Qualifiers: Substance use status: uncomplicated Qualified Code(s): F17.210 - Nicotine dependence, cigarettes, uncomplicated Is this a current diagnosis for this admission?: Yes Plan: Continue nicotine and encourage cessation (6) Perforated viscus Is this a current diagnosis for this admission?: Yes Plan: Upper GI study revealed no extravasation of contrast from the stomach. There was normal gastric emptying time. Anticipate removal of the nasogastric tube with clear liquid diet. This will be determined by the surgicalist. (7) Pneumoperitoneum Is this a current diagnosis for this admission?: Yes Plan: Secondary to gastric perforation. Resolved. - Time Time Spent with patient: 15-24 minutes Medications reviewed and adjusted accordingly: Yes Anticipated discharge: Home
[2020-01-02] MEDS ORDERED: POTASSIUM CHLORIDE 10 MEQ TABLET.ER PO ONE (13:00)
[2020-01-02] MEDS ORDERED: ONDANSETRON HCL INJ/PF 4 MG/2 ML SDV IV PRN (13:00)
[2020-01-02] MEDS ORDERED: HYDRALAZINE HCL INJ/PF 20 MG/1 ML SDV IV PRN (13:00)
[2020-01-02] MEDS: TAMSULOSIN HCL 0.4 MG CAP.SR.24H PO SCH ×2 (13:59→17:06)
[2020-01-02] MEDS: PANTOPRAZOLE SODIUM 40 MG VIAL IV SCH ×2 (14:00→22:06)
[2020-01-02] MEDS: DIAZEPAM 5 MG TABLET PO SCH (22:04)
[2020-01-02] MEDS: POTASSIUM CHLORIDE 10 MEQ TABLET.ER PO SCH (22:04)
[2020-01-03] MEDS: AMPICILLIN SODIUM/SULBACTAM NA 3 GM in NORMAL SALINE 100 ML IV SCH (05:23)
[2020-01-03 07:02] LABS: ANION GAP 6 (5-19); BLOOD UREA NITROGEN 6 mg/dL (7-20); CALCIUM 8.7 mg/dL (8.4-10.2); CARBON DIOXIDE 30 mmol/L (22-30); CHLORIDE 99 mmol/L (98-107); GLUCOSE 109 mg/dL (75-110); POTASSIUM 3.9 mmol/L (3.6-5.0)
--- NOTE | 2020-01-03 08:58 | PDOC PROGRESS REPORT ---
Subjective Progress Note for:: 01/03/20 Subjective:: passing stool clara clears. Reason For Visit: FREE INTRAPENTONEAL AIR Physical Exam Vital Signs: Temp Pulse Resp BP Pulse Ox 98.4 F 64 18 146/96 H 99 01/03/20 04:01 01/03/20 04:01 01/03/20 04:01 01/03/20 04:01 01/03/20 04:01 Intake & Output 01/02/20 01/03/20 01/04/20 06:59 06:59 06:59 Intake Total 1323 3943 Output Total 3310 3050 Balance -1986 893 Weight 80.1 kg 80.1 kg General appearance: PRESENT: no acute distress Head exam: PRESENT: normocephalic Eye exam: PRESENT: EOMI Mouth exam: PRESENT: moist Neck exam: PRESENT: full ROM Respiratory exam: PRESENT: clear to auscultation lili Cardiovascular exam: PRESENT: RRR Pulses: PRESENT: normal femoral pulses, normal dorsalis pedis pul Vascular exam: PRESENT: normal capillary refill Breast: PRESENT: Normal GI/Abdominal exam: PRESENT: soft Rectal exam: PRESENT: deferred Gentrourinary exam: PRESENT: indwelling catheter Extremities exam: PRESENT: full ROM Musculoskeletal exam: PRESENT: full ROM Neurological exam: PRESENT: alert, awake, oriented to person Skin exam: PRESENT: dry Results Laboratory Results: 01/02/20 04:11 01/03/20 06:20 01/03/20 06:20 Sodium 135.4 L Potassium 3.9 Chloride 99 Carbon Dioxide 30 Anion Gap 6 BUN 6 L Creatinine 0.61 Est GFR ( Amer) > 60 Glucose 109 Calcium 8.7 Magnesium 1.6 12/27/19 07:05 Troponin I < 0.012 Impressions: Abdomen/Pelvis CT 12/27/19 00:00 IMPRESSION: Free intraperitoneal air and fluid. Findings worrisome for perforated viscus. Called to the emergency room as a critical result Chest X-Ray 12/30/19 07:00 IMPRESSION: The enteric tube has been advanced forward and its tip projects outside the field of view of the radiograph. KUB X-Ray 12/31/19 00:00 IMPRESSION: Lines and tubes as above. Enteric tube tip projecting over the left upper abdomen with the side port located in the region of the gastroesophageal junction. Nonobstructive bowel gas pattern. Upper GI Series-Limited 01/02/20 00:00 IMPRESSION: NO EVIDENCE OF EXTRAVASATION OR LEAK. Assessment & Plan - Plan Summary Plan Summary: s/p ex lap for perfed du now doing ok clara clears will dc left drain advance to full liquids dc bullard prob home in am.
[2020-01-03] MEDS: FOLIC ACID 1 MG TABLET PO SCH (10:32)
[2020-01-03] MEDS: THIAMINE HCL 100 MG TABLET PO SCH (10:32)
[2020-01-03] MEDS: PANTOPRAZOLE SODIUM 40 MG VIAL IV SCH ×2 (10:33→21:23)
[2020-01-03] MEDS: TAMSULOSIN HCL 0.4 MG CAP.SR.24H PO SCH ×2 (10:33→17:31)
[2020-01-03] MEDS: DIAZEPAM 5 MG TABLET PO SCH ×2 (10:33→21:23)
[2020-01-03] MEDS: POTASSIUM CHLORIDE 10 MEQ TABLET.ER PO SCH ×2 (10:33→21:21)
[2020-01-03] MEDS: FUROSEMIDE INJ/PF 20 MG/2 ML SDV IV SCH (10:39)
[2020-01-03] MEDS: METOPROLOL TARTRATE 50 MG TABLET PO SCH ×2 (10:40→21:22)
[2020-01-03] MEDS: NICOTINE 14 MG/24 HR PATCH.TD24 TD SCH (10:40)
[2020-01-03] MEDS: LISINOPRIL 10 MG TABLET PO SCH ×2 (10:40→21:22)
[2020-01-03] MEDS ORDERED: OXYCODONE HCL IR 5 MG TABLET PO PRN (11:35)
[2020-01-03] MEDS: OXYCODONE-ACETAMINOPHEN 5-325 MG TABLET PO PRN (17:31)
--- NOTE | 2020-01-03 18:07 | PDOC PROGRESS REPORT ---
Subjective Progress Note for:: 01/03/20 Subjective:: Patient was seen on morning rounds. He was found resting in bed, comfortably, on room air. He reports continued abdominal discomfort, although, notes that this is decreased from previously. He is tolerating p.o. fluids; asks to advance his diet today. He states that he is feeling well; hopeful to go home soon. He asks, multiple times, that I ensure that he is discharged "with strong pain medication." Otherwise, he has no questions or concerns. No concerns per nursing. Reason For Visit: FREE INTRAPENTONEAL AIR Physical Exam Vital Signs: Temp Pulse Resp BP Pulse Ox 98.4 F 64 16 121/75 100 01/03/20 15:06 01/03/20 15:06 01/03/20 15:06 01/03/20 15:06 01/03/20 15:06 Intake & Output 01/02/20 01/03/20 01/04/20 06:59 06:59 06:59 Intake Total 1323 3943 400 Output Total 3310 3050 20 -1986 893 380 Weight 80.1 kg 80.1 kg General appearance: PRESENT: no acute distress, cooperative, well-developed, well-nourished Head exam: PRESENT: atraumatic, normocephalic Eye exam: PRESENT: conjunctiva pink, EOMI, PERRLA. ABSENT: scleral icterus Mouth exam: PRESENT: moist, tongue midline Teeth exam: PRESENT: poor dentation Respiratory exam: PRESENT: clear to auscultation lili, symmetrical, unlabored. ABSENT: rales, rhonchi, wheezes Cardiovascular exam: PRESENT: RRR, +S1, +S2. ABSENT: diastolic murmur, rubs, systolic murmur Vascular exam: PRESENT: normal capillary refill GI/Abdominal exam: PRESENT: normal bowel sounds, soft, tenderness, other - Midline incision, ZORAN drain. ABSENT: distended, guarding, mass, organolmegaly, rebound Rectal exam: PRESENT: deferred Gentrourinary exam: PRESENT: indwelling catheter Extremities exam: PRESENT: full ROM. ABSENT: calf tenderness, clubbing, pedal edema Neurological exam: PRESENT: alert, awake, oriented to person, oriented to place, oriented to time, oriented to situation, CN II-XII grossly intact. ABSENT: motor sensory deficit Psychiatric exam: PRESENT: appropriate affect, normal mood. ABSENT: homicidal ideation, suicidal ideation Skin exam: PRESENT: dry, intact, warm. ABSENT: cyanosis, rash Results Laboratory Results: 01/02/20 04:11 01/03/20 06:20 01/03/20 06:20 Sodium 135.4 L Potassium 3.9 Chloride 99 Carbon Dioxide 30 Anion Gap 6 BUN 6 L Creatinine 0.61 Est GFR ( Amer) > 60 Glucose 109 Calcium 8.7 Magnesium 1.6 12/27/19 07:05 Troponin I < 0.012 Impressions: Abdomen/Pelvis CT 12/27/19 00:00 IMPRESSION: Free intraperitoneal air and fluid. Findings worrisome for perforated viscus. Called to the emergency room as a critical result Chest X-Ray 12/30/19 07:00 IMPRESSION: The enteric tube has been advanced forward and its tip projects outside the field of view of the radiograph. KUB X-Ray 12/31/19 00:00 IMPRESSION: Lines and tubes as above. Enteric tube tip projecting over the left upper abdomen with the side port located in the region of the gastroesophageal junction. Nonobstructive bowel gas pattern. Upper GI Series-Limited 01/02/20 00:00 IMPRESSION: NO EVIDENCE OF EXTRAVASATION OR LEAK. Assessment and Plan - Diagnosis (1) HTN (hypertension) Qualifiers: Hypertension type: essential hypertension Qualified Code(s): I10 - Essential (primary) hypertension Is this a current diagnosis for this admission?: Yes Plan: Adequate blood pressure control. 121/75 Continue lisinopril 20 mg twice daily, metoprolol 50 mg twice daily. IV hydralazine as needed for blood pressure control. (2) Alcoholic Is this a current diagnosis for this admission?: Yes Plan: Patient has been gradually weaned off of benzos. Currently on Valium 5 mg every 12 hours. Has not required PRN Ativan. He is placed on folic acid and thiamine supplementation. (3) Cigarette nicotine dependence Qualifiers: Substance use status: uncomplicated Qualified Code(s): F17.210 - Nicotine dependence, cigarettes, uncomplicated Is this a current diagnosis for this admission?: Yes Plan: Continue smoking cessation. Nicotine replacement therapies provided. (4) Hypokalemia Is this a current diagnosis for this admission?: Yes Plan: Replete. Follow-up chemistry. (5) Perforated viscus Is this a current diagnosis for this admission?: Yes Plan: Upper GI study revealed no extravasation of contrast from the stomach. There was normal gastric emptying time. Primary plan per surgery. NG tube has been removed; advanced to full liquid diet. Analgesics and antiemetics as needed. (6) Pneumoperitoneum Is this a current diagnosis for this admission?: Yes Plan: Secondary to gastric perforation. Resolved. (7) Pharyngitis Qualifiers: Pharyngitis/tonsillitis etiology: unspecified etiology Qualified Code(s): J02.9 - Acute pharyngitis, unspecified Is this a current diagnosis for this admission?: Yes Plan: Resolved. Secondary to NG tube; since removed. Chloraseptic spray as needed. - Time Time Spent with patient: 25-34 minutes Medications reviewed and adjusted accordingly: Yes Anticipated discharge: Home Within: Other - Per surgical service; likely within the next 24 to 48 hours.
[2020-01-04] MEDS: OXYCODONE-ACETAMINOPHEN 5-325 MG TABLET PO PRN ×2 (01:24→09:41)
[2020-01-04] MEDS: PANTOPRAZOLE SODIUM 40 MG VIAL IV SCH (09:32)
[2020-01-04] MEDS: TAMSULOSIN HCL 0.4 MG CAP.SR.24H PO SCH (09:32)
[2020-01-04] MEDS: FUROSEMIDE INJ/PF 20 MG/2 ML SDV IV SCH (09:32)
[2020-01-04] MEDS: FOLIC ACID 1 MG TABLET PO SCH (09:32)
[2020-01-04] MEDS: METOPROLOL TARTRATE 50 MG TABLET PO SCH (09:33)
[2020-01-04] MEDS: LISINOPRIL 10 MG TABLET PO SCH (09:33)
[2020-01-04] MEDS: POTASSIUM CHLORIDE 10 MEQ TABLET.ER PO SCH (09:33)
[2020-01-04] MEDS: THIAMINE HCL 100 MG TABLET PO SCH (09:33)
[2020-01-04] MEDS: NICOTINE 14 MG/24 HR PATCH.TD24 TD SCH (09:34)
[2020-01-04] MEDS: DIAZEPAM 5 MG TABLET PO SCH (09:34)
--- NOTE | 2020-01-04 10:30 | PDOC DISCHARGE SUMMARY ---
General - Admit/Disc Date/PCP Admission Date/Primary Care Provider: 12/27/19 12:32 Discharge Date: 01/04/20 - Discharge Diagnosis Final Diagnosis: Perforated gastric ulcer Chronic alcohol abuse Hypertension Urinary retention - Assessment Summary: 49-year-old male admitted for perforated distal gastric ulcer with peritonitis. Patient immediately underwent exploratory laparotomy on 12/27/[address] Hilario. Patient underwent repeat repair of perforation with Sumit patch and drainage. Postoperatively patient noted to have hypertension and was given metoprolol. Patient under medical orders. On the day of discharge patient tolerating full liquid diet. He did have an upper GI series on 01/02/2020 which showed no leak. Patient's been doing well and the other drain was removed on the day of discharge. There is a small separation of the skin from the abdominal incision and patient was instructed to wash this with soap and water daily and just apply dry dressing. Patient was then discharged on 01/04/2020 with above final diagnosis. Patient given prescription for Toradol and Flomax as well as metoprolol. - Additional Information Resuscitation Status: Full Code Discharge Diet: Full Liquids Discharge Activity: No Lifting Over 10 Pounds Referrals: [facility] [Provider Group] - 01/09/20 8:15 am Prescriptions: Tamsulosin HCl [Flomax 0.4 mg Cap.sr] 0.4 mg PO DAILY #30 cap.sr.24h Folic Acid [Folvite 1 mg Tablet] 1 mg PO DAILY #90 tablet Metoprolol Tartrate [Lopressor 50 mg Tablet] 50 mg PO Q12 #60 tablet Nicotine [Nicoderm 14 mg/24 Hr Transdermal Patch] 1 each TD DAILY #30 patch.td24 Lisinopril [Prinivil 10 mg Tablet] 20 mg PO Q12 #60 tablet Thiamine HCl [Thiamine 100 mg Tablet] 100 mg PO DAILY #90 tablet Home Medications: Folic Acid [Folvite 1 mg Tablet] 1 mg PO DAILY #90 tablet 01/04/20 Lisinopril [Prinivil 10 mg Tablet] 20 mg PO Q12 #60 tablet 01/04/20 Metoprolol Tartrate [Lopressor 50 mg Tablet] 50 mg PO Q12 #60 tablet 01/04/20 Nicotine [Nicoderm 14 mg/24 Hr Transdermal Patch] 1 each TD DAILY #30 patch.td24 01/04/20 Tamsulosin HCl [Flomax 0.4 mg Cap.sr] 0.4 mg PO DAILY #30 cap.sr.24h 01/04/20 Thiamine HCl [Thiamine 100 mg Tablet] 100 mg PO DAILY #90 tablet 01/04/20 History of Present Illiness History of Present Illness: JIMMY RIVER is a 49 year old male Hospital Course Hospital Course: Patient underwent exploratory laparotomy with repair of gastric perforation and placement of Sumit patch by Dr. Hilario on 12/27/2019. Postoperatively the patient did quite well. Patient given metoprolol for hypertension by hospitalist. Also given Flomax for urinary retention post removal of Cuellar catheter. Patient voiding on his own at this time. Patient to be discharged on 01/04/2020 to be followed up in the surgical clinic in about 2 weeks. Physical Exam Vital Signs: Temp Pulse Resp BP Pulse Ox 97.8 F 65 17 132/85 H 100 01/04/20 07:31 01/04/20 07:31 01/04/20 07:31 01/04/20 07:31 01/04/20 07:31 Intake & Output 01/03/20 01/04/20 01/05/20 06:59 06:59 06:59 Intake Total 3943 660 Output Total 3050 30 Balance 893 630 Weight 80.1 kg 73.2 kg Exam: Abdomen is soft with abdominal incision small skin dehiscence. Patient advised to continue washed this with soap and water and apply dry dressing on a daily basis. Results Laboratory Results: WBC 9.0 10^3/uL (4.0-10.5) 01/02/20 04:11 RBC 4.22 10^6/uL (4.35-5.55) L 01/02/20 04:11 Hgb 14.8 g/dL (13.5-17.0) 01/02/20 04:11 Hct 43.3 % (37.9-51.0) 01/02/20 04:11 MCV 103 fl (80-97) H 01/02/20 04:11 MCH 35.0 pg (27.0-33.4) H 01/02/20 04:11 MCHC 34.2 g/dL (32.0-36.0) 01/02/20 04:11 RDW 13.2 % (11.5-14.0) 01/02/20 04:11 Plt Count 249 10^3/uL (150-450) 01/02/20 04:11 Lymph % (Auto) 19.0 % (13-45) 01/02/20 04:11 [place] % (Auto) 15.6 % (3-13) H 01/02/20 04:11 Eos % (Auto) 8.9 % (0-6) H 01/02/20 04:11 Baso % (Auto) 0.4 % (0-2) 01/02/20 04:11 Absolute Neuts (auto) 5.0 10^3/uL (1.7-8.2) 01/02/20 04:11 Absolute Lymphs (auto) 1.7 10^3/uL (0.5-4.7) 01/02/20 04:11 Absolute Monos (auto) 1.4 10^3/uL (0.1-1.4) 01/02/20 04:11 Absolute Eos (auto) 0.8 10^3/uL (0.0-0.6) H 01/02/20 04:11 Absolute Basos (auto) 0.0 10^3/uL (0.0-0.2) 01/02/20 04:11 Seg Neutrophils % 56.1 % (42-78) 01/02/20 04:11 Sodium 135.4 mmol/L (137-145) L 01/03/20 06:20 Potassium 3.9 mmol/L (3.6-5.0) 01/03/20 06:20 Chloride 99 mmol/L (98-107) 01/03/20 06:20 Carbon Dioxide 30 mmol/L (22-30) 01/03/20 06:20 Anion Gap 6 (5-19) 01/03/20 06:20 BUN 6 mg/dL (7-20) L 01/03/20 06:20 Creatinine 0.61 mg/dL (0.52-1.25) 01/03/20 06:20 Est GFR ( Amer) > 60 (>60) 01/03/20 06:20 Est GFR (MDRD) Non-Af > 60 (>60) 01/03/20 06:20 Glucose 109 mg/dL (75-110) 01/03/20 06:20 Calcium 8.7 mg/dL (8.4-10.2) 01/03/20 06:20 Magnesium 1.6 mg/dL (1.6-2.3) 01/03/20 06:20 Total Bilirubin 1.0 mg/dL (0.2-1.3) 12/27/19 07:50 Direct Bilirubin 0.2 mg/dL (0.0-0.4) 12/27/19 07:50 Neonat Total Bilirubin Not Reportable 12/27/19 07:50 Neonat Direct Bilirubin Not Reportable 12/27/19 07:50 Neonat Indirect Bili Not Reportable 12/27/19 07:50 AST 96 U/L (17-59) H 12/27/19 07:50 ALT 51 U/L (<50) H 12/27/19 07:50 Alkaline Phosphatase 94 U/L (38-126) 12/27/19 07:50 Troponin I < 0.012 ng/mL 12/27/19 07:05 Total Protein 9.0 g/dL (6.3-8.2) H 12/27/19 07:50 Albumin 4.9 g/dL (3.5-5.0) 12/27/19 07:50 Lipase 246.3 U/L (23-300) 12/27/19 07:50 Urine Color YELLOW 12/27/19 12:53 Urine Appearance SLIGHTLY-CLOUDY 12/27/19 12:53 Urine pH 5.0 (5.0-9.0) 12/27/19 12:53 Ur Specific [place] 1.030 12/27/19 12:53 Urine Protein NEGATIVE mg/dL (NEGATIVE) 12/27/19 12:53 Urine Glucose (UA) 50 mg/dL (NEGATIVE) H 12/27/19 12:53 Urine Ketones TRACE mg/dL (NEGATIVE) H 12/27/19 12:53 Urine Blood MODERATE (NEGATIVE) H 12/27/19 12:53 Urine Nitrite NEGATIVE (NEGATIVE) 12/27/19 12:53 Urine Bilirubin NEGATIVE (NEGATIVE) 12/27/19 12:53 Urine Urobilinogen 2.0 mg/dL (<2.0) H 12/27/19 12:53 Ur Leukocyte Esterase NEGATIVE (NEGATIVE) 12/27/19 12:53 Urine WBC (Auto) 3 /HPF 12/27/19 12:53 Urine RBC (Auto) 1 /HPF 12/27/19 12:53 U Hyaline Cast (Auto) 7 /LPF 12/27/19 12:53 Urine Bacteria (Auto) TRACE /HPF 12/27/19 12:53 Squamous Epi Cells Auto <1 /HPF 12/27/19 12:53 Urine Mucus (Auto) MANY /LPF 12/27/19 12:53 Urine Ascorbic Acid NEGATIVE (NEGATIVE) 12/27/19 12:53 Urine Opiates Screen UNCONFIRMED POSITIVE 12/27/19 12:53 Urine Methadone Screen NEGATIVE 12/27/19 12:53 Ur Barbiturates Screen NEGATIVE 12/27/19 12:53 Ur Phencyclidine Scrn NEGATIVE 12/27/19 12:53 Ur Amphetamines Screen NEGATIVE 12/27/19 12:53 U Benzodiazepines Scrn NEGATIVE 12/27/19 12:53 Urine Cocaine Screen NEGATIVE 12/27/19 12:53 U Marijuana (THC) Screen UNCONFIRMED POSITIVE 12/27/19 12:53 Serum Alcohol < 10 mg/dL (NONE DETECTED) 12/27/19 07:50 SARS-CoV-2 (PCR) NEGATIVE (NEGATIVE) 12/27/19 12:30 12/27/19 07:05 Troponin I < 0.012 Impressions: Abdomen/Pelvis CT 12/27/19 00:00 IMPRESSION: Free intraperitoneal air and fluid. Findings worrisome for perforated viscus. Called to the emergency room as a critical result Chest X-Ray 12/27/19 07:58 IMPRESSION: NO ACUTE RADIOGRAPHIC FINDING IN THE CHEST. KUB X-Ray 12/29/19 00:00 IMPRESSION: Limited field of view without evidence of pneumoperitoneum or high- grade bowel obstruction. Enteric tube with the proximal port terminating in the region of the gastroesophageal junction. Consider advancing 7 to 10 cm. Apparent abdominal drains terminate in the right upper quadrant. No pneumoperitoneum. Chest X-Ray 12/30/19 00:00 IMPRESSION: Enteric tube coiled near the GE junction. Adjustment recommended copyright 2011 [employer]- All Rights Reserved Chest X-Ray 12/30/19 00:00 IMPRESSION: 1. Interval advancement of NG tube with tip beyond the stomach. Chest X-Ray 12/30/19 07:00 IMPRESSION: The enteric tube has been advanced forward and its tip projects outside the field of view of the radiograph. KUB X-Ray 12/31/19 00:00 IMPRESSION: Lines and tubes as above. Enteric tube tip projecting over the left upper abdomen with the side port located in the region of the gastroesophageal junction. Nonobstructive bowel gas pattern. Upper GI Series-Limited 01/02/20 00:00 IMPRESSION: NO EVIDENCE OF EXTRAVASATION OR LEAK. Plan Health Concerns: Patient should avoid drinking and stop smoking. Plan of Treatment: Patient to continue with all medications including Flomax, and metoprolol. Goals: Eventful resume normal activity. Time Spent: Less than 30 Minutes
[2020-01-04 12:15] VITALS: BP 144/95
--- NOTE | 2020-01-04 17:44 | PDOC PROGRESS REPORT ---
Subjective Progress Note for:: 01/04/20 Subjective:: Patient was seen on morning rounds. He was found resting in bed, comfortably, on room air. He reports continued abdominal discomfort, although, notes that this is decreased from previously. Very happy to have had ZORAN drain removed. Asks to discharge home today. Otherwise, he has no questions or concerns. His fever, chills, chest pain, palpitations, dyspnea, orthopnea, nausea, vomiting, diarrhea. Reports good appetite. No concerns per nursing. Reason For Visit: FREE INTRAPENTONEAL AIR Physical Exam Vital Signs: Temp Pulse Resp BP Pulse Ox 97.8 F 65 17 144/95 H 100 01/04/20 12:12 01/04/20 12:12 01/04/20 12:12 01/04/20 12:12 01/04/20 12:12 Intake & Output 01/03/20 01/04/20 01/05/20 06:59 06:59 06:59 Intake Total 3943 660 Output Total 3050 30 Balance 893 630 Weight 80.1 kg 73.2 kg General appearance: PRESENT: no acute distress, well-developed, well-nourished Head exam: PRESENT: atraumatic, normocephalic Eye exam: PRESENT: conjunctiva pink, EOMI, PERRLA. ABSENT: scleral icterus Mouth exam: PRESENT: moist, tongue midline Teeth exam: PRESENT: poor dentation Respiratory exam: PRESENT: clear to auscultation lili, symmetrical, unlabored. ABSENT: rales, rhonchi, wheezes Cardiovascular exam: PRESENT: RRR. ABSENT: diastolic murmur, rubs, systolic murmur Pulses: PRESENT: normal dorsalis pedis pul Vascular exam: PRESENT: normal capillary refill GI/Abdominal exam: PRESENT: normal bowel sounds, soft, tenderness - Midline incision. ABSENT: distended, guarding, mass, organolmegaly, rebound Rectal exam: PRESENT: deferred Extremities exam: PRESENT: full ROM. ABSENT: calf tenderness, clubbing, pedal edema Musculoskeletal exam: PRESENT: ambulatory Neurological exam: PRESENT: alert, awake, oriented to person, oriented to place, oriented to time, oriented to situation, CN II-XII grossly intact. ABSENT: motor sensory deficit Psychiatric exam: PRESENT: appropriate affect, normal mood. ABSENT: homicidal ideation, suicidal ideation Skin exam: PRESENT: dry, intact, warm. ABSENT: cyanosis, rash Results Laboratory Results: 01/02/20 04:11 01/03/20 06:20 12/27/19 07:05 Troponin I < 0.012 Impressions: Abdomen/Pelvis CT 12/27/19 00:00 IMPRESSION: Free intraperitoneal air and fluid. Findings worrisome for perforated viscus. Called to the emergency room as a critical result Chest X-Ray 12/30/19 07:00 IMPRESSION: The enteric tube has been advanced forward and its tip projects outside the field of view of the radiograph. KUB X-Ray 12/31/19 00:00 IMPRESSION: Lines and tubes as above. Enteric tube tip projecting over the left upper abdomen with the side port located in the region of the gastroesophageal junction. Nonobstructive bowel gas pattern. Upper GI Series-Limited 01/02/20 00:00 IMPRESSION: NO EVIDENCE OF EXTRAVASATION OR LEAK. Assessment and Plan - Diagnosis (1) HTN (hypertension) Qualifiers: Hypertension type: essential hypertension Qualified Code(s): I10 - Essential (primary) hypertension Is this a current diagnosis for this admission?: Yes Plan: Adequate blood pressure control. 121/75 Continue lisinopril 20 mg twice daily, metoprolol 50 mg twice daily. Prescription sent to the patient's identified pharmacy. (2) Alcoholic Is this a current diagnosis for this admission?: Yes Plan: Patient has been gradually weaned off of benzos. Currently on Valium 5 mg every 12 hours; does not require continued scheduled benzodiazepines at discharge. Recommend he continue folic acid and thiamine supplementation. (3) Cigarette nicotine dependence Qualifiers: Substance use status: uncomplicated Qualified Code(s): F17.210 - Nicotine dependence, cigarettes, uncomplicated Is this a current diagnosis for this admission?: Yes Plan: Continue smoking cessation. Nicotine replacement therapies provided. Prescription for NicoDerm patches sent to patient's identified pharmacy. (4) Hypokalemia Is this a current diagnosis for this admission?: Yes Plan: Replete. (5) Perforated viscus Is this a current diagnosis for this admission?: Yes Plan: Upper GI study revealed no extravasation of contrast from the stomach. There was normal gastric emptying time. Primary plan per surgery. NG tube and ZORAN tubes have been removed Diet advance per surgery. Discussed with Dr. Aly; plans to discharge today. (6) Pneumoperitoneum Is this a current diagnosis for this admission?: Yes Plan: Secondary to gastric perforation. Resolved. (7) Pharyngitis Qualifiers: Pharyngitis/tonsillitis etiology: unspecified etiology Qualified Code(s): J02.9 - Acute pharyngitis, unspecified Is this a current diagnosis for this admission?: Yes Plan: Resolved. Secondary to NG tube; since removed. Chloraseptic spray as needed. - Time Time Spent with patient: 15-24 minutes Medications reviewed and adjusted accordingly: Yes Anticipated discharge: Home with Homehealth
== END 2020-01-04 13:31 | disposition home or self-care (01) | DRG 326 ==
LOC: ER 06:12 → EH 12:32 → 4N 17:17
PROVIDERS: ADMIT Surgery; ATTEND Surgery
PROC: 0DB60ZX Excision of Stomach, Open Approach, Diagnostic (ICD-10-PCS; 2019-12-27)
PROC: 0W9F00Z Drainage of Abdominal Wall with Drainage Device, Open Approach (ICD-10-PCS; 2019-12-27)
PROC: 3E1M38Z Irrigation of Peritoneal Cavity using Irrigating Substance, Percutaneous Approach (ICD-10-PCS; 2019-12-27)
PROC: 0DU707Z Supplement Stomach, Pylorus with Autologous Tissue Substitute, Open Approach (ICD-10-PCS; principal; 2019-12-27 15:15)
DX: K25.1 Acute gastric ulcer with perforation (principal); K65.9 Peritonitis, unspecified; K66.8 Other specified disorders of peritoneum; E87.6 Hypokalemia; J02.9 Acute pharyngitis, unspecified; I10 Essential (primary) hypertension; G62.9 Polyneuropathy, unspecified; R33.9 Retention of urine, unspecified; F10.10 Alcohol abuse, uncomplicated; F17.210 Nicotine dependence, cigarettes, uncomplicated; Y90.0 Blood alcohol level of less than 20 mg/100 ml; Z20.828 Contact with and (suspected) exposure to other viral communicable diseases
CPT/HCPCS: 00790; 36415; 71045; 74018; 74177; 74240; 80048; 80053; 80307; 81001; 83690; 83735; 84484; 85025; 87040; 87070; 87075; 87205; 87635; 88305; 88341; 88342; 93005; 93010; 94799; 96361; 96374; 96375; 96376; 99140; 99291; 99292; C1758; C9113; C9290; C9803; J0131; J0295; J0330; J0360; J1100; J1170; J1940; J2060; J2250; J2270; J2370; J2405; J2543; J2704; J3010; J3360; J3411; J3475; J3480; J3490; J7030; J7050; S0028